=== PATIENT | female | born 1990 | race Caucasian/White ===

== ENCOUNTER 2018-02-02 17:27 | Emergency (ER) | payer OTHER ==
[2018-02-02 18:25] LABS: ALBUMIN 5.5 g/dL (3.2-5.5); ALBUMIN/GLOBULIN RATIO 1.9 (1.0-2.2); ALKALINE PHOSPHATASE 37 IU/L (42-121); ALT ALANINE AMINOTRANSFERASE 13 IU/L (10-60); AST ASPARTATE AMINOTRANSFERASE 21 IU/L (10-42); BILIRUBIN,TOTAL 0.9 mg/dL (0.2-1.0); BUN - BLOOD UREA NITROGEN 12 mg/dL (6-20); CALCIUM 9.5 mg/dL (8.5-10.3); CARBON DIOXIDE - CO2 23 mmol/L (21-32); CHLORIDE 104 mmol/L (101-111); CREATININE 0.7 mg/dL (0.4-1.0); GFR - MDRD 102 (>89); GLUCOSE 114 mg/dL (70-100); LIPASE 15 U/L (22-51); SALICYLATE < 6.0 mg/dL; SODIUM 138 mmol/L (135-145); TOTAL PROTEIN 8.4 g/dL (6.7-8.2)
[2018-02-02 18:31] LABS: ACETAMINOPHEN < 10 ug/mL (10-30)
[2018-02-02 19:26] LABS: MUDS CUTOFF CONCENTRATIONS CUTOFF CONC BELOW:
--- NOTE | 2018-02-02 19:36 | ED Physician Documentation ---
PD HPI MHE - Stated complaint Stated Complaint: MHE - Chief complaint Chief Complaint: MHE - History obtained from History obtained from: Patient, Family - History of Present Illness Primary symptom: Off meds Pain level max: 0 Pain level now: 0 Similar symptoms before: Diagnosis (possible bipolar.) Recently seen: Not recently seen - Additional information Additional information: States increasing anxiety and depression for the past 6 months. has been battling this for several years. Currently not on medications. Saw a psychiatrist 1 month ago and was started on lithium, but stopped this. Says it made her feel "like an empty box". Has a 1 year old and 3 year old at home. Currently is not seeing a psychiatrist. Had been on zoloft in the past as well , states it didn't help. has thoughts of dying, but is not actively suicidal. Patient states that she feels like she would like to go to an inpatient facility as a voluntary patient. Review of Systems Ten Systems: 10 systems reviewed and negative Constitutional: denies: Fever, Chills GI: denies: Nausea, Vomiting, Diarrhea : denies: Dysuria, Frequency, Hesitancy, Now EGA Skin: denies: Rash Musculoskeletal: denies: Neck pain, Back pain Neurologic: denies: Headache PD PAST MEDICAL HISTORY - Past Medical History Past Medical History: Yes Psych: Depression, Anxiety Other Past Medical History: Factor [place] - Past Surgical History Past Surgical History: No - Present Medications Home Medications: Ambulatory Orders Medication Instructions Recorded Confirmed No Known Home Medications [No 02/02/18 02/02/18 Known Home Medications] - Allergies Allergies/Adverse Reactions: Allergies Allergy/AdvReac Type Severity Reaction Status Date / Time amoxicillin Allergy Unknown Verified 02/02/18 17:38 - Social History Does the pt smoke?: No Smoking Status: Never smoker Does the pt drink ETOH?: Yes Does the pt have substance abuse?: No - Immunizations Immunizations are current?: Yes - POLST Patient has POLST: No PD ED PE NORMAL - Vitals Vital signs reviewed: Yes - General General: Alert and oriented X 3, No acute distress - HEENT HEENT: PERRL, Moist mucous membranes - Neck Neck: Supple, no meningeal sign - Cardiac Cardiac: RRR, Strong equal pulses - Respiratory Respiratory: No respiratory distress, Clear bilaterally - Abdomen Abdomen: Soft, Non tender, Non distended - Derm Derm: Warm and dry - Extremities Extremities: No edema, No calf tenderness / cord - Neuro Neuro: Alert and oriented X 3 - Psych Psych: Other (flat affect.) Results - Vitals Vitals: Vital Signs - 24 hr 02/02/18 02/02/18 02/02/18 17:32 19:59 20:45 Temperature 36.8 C Heart Rate 92 81 75 Respiratory 16 16 16 Rate Blood Pressure 125/71 112/73 109/79 O2 Saturation 100 100 100 Oxygen O2 Source Room air - Labs Labs: Laboratory Tests 02/02/18 02/02/18 02/02/18 18:05 18:05 18:05 WBC RBC Hgb Hct MCV MCH MCHC RDW Plt Count MPV Neut # Lymph # [place] # Eos # Baso # Absolute Nucleated RBC Nucleated RBC % Sodium 138 Potassium 2.6 L Chloride 104 Carbon Dioxide 23 Anion Gap 11.0 BUN 12 Creatinine 0.7 Estimated GFR (MDRD) 102 Glucose 114 H Calcium 9.5 Phosphorus 2.6 Magnesium 2.2 Total Bilirubin 0.9 AST 21 ALT 13 Alkaline Phosphatase 37 L Total Protein 8.4 H Albumin 5.5 Globulin 2.9 Albumin/Globulin Ratio 1.9 Lipase 15 L TSH 3.72 Free T4 0.90 Salicylates < 6.0 Urine Opiates Screen Ur Oxycodone Screen Urine Methadone Screen Ur Propoxyphene Screen Acetaminophen < 10 L Ur Barbiturates Screen Ur Tricyclics Screen Ur Phencyclidine Scrn Ur Amphetamine Screen U Methamphetamines Scrn U Benzodiazepines Scrn Urine Cocaine Screen U Cannabinoids Screen Ethyl Alcohol < 5.0 02/02/18 02/02/18 18:05 19:00 WBC 8.0 RBC 4.77 Hgb 14.4 Hct 44.0 MCV 92.2 MCH 30.2 MCHC 32.7 RDW 13.7 Plt Count 250 MPV 9.1 Neut # 5.2 Lymph # 2.4 [place] # 0.4 Eos # 0.0 Baso # 0.0 Absolute Nucleated RBC 0.00 Nucleated RBC % 0.1 Sodium Potassium Chloride Carbon Dioxide Anion Gap BUN Creatinine Estimated GFR (MDRD) Glucose Calcium Phosphorus Magnesium Total Bilirubin AST ALT Alkaline Phosphatase Total Protein Albumin Globulin Albumin/Globulin Ratio Lipase TSH Free T4 Salicylates Urine Opiates Screen NEGATIVE Ur Oxycodone Screen NEGATIVE Urine Methadone Screen NEGATIVE Ur Propoxyphene Screen NEGATIVE Acetaminophen Ur Barbiturates Screen NEGATIVE Ur Tricyclics Screen NEGATIVE Ur Phencyclidine Scrn NEGATIVE Ur Amphetamine Screen NEGATIVE U Methamphetamines Scrn NEGATIVE U Benzodiazepines Scrn NEGATIVE Urine Cocaine Screen NEGATIVE U Cannabinoids Screen POSITIVE H Ethyl Alcohol PD MEDICAL DECISION MAKING - ED course Complexity details: reviewed results, re-evaluated patient, considered differential, d/w patient ED course: Patient is a 27-year-old female who presents to the emergency department with ongoing chronic depression. Found to be hypokalemic and this was replaced. Social work is not available tonight to help with voluntary placement, therefore will hold her in the emergency department overnight and have social work see her in the morning. Will likely need her potassium rechecked. Patient is calm and cooperative here. No evidence of self injury or self-harm. Patient signed out to oncoming emergency department physician. This document was made in part using voice recognition software. While efforts are made to proofread this document, sound alike and grammatical errors may occur. Departure - Departure Clinical Impression: Depression Qualifiers: Depression Type: unspecified Qualified Code(s): F32.9 - Major depressive disorder, single episode, unspecified Condition: Stable
[2018-02-02 19:39] LABS: AMPHETAMINE SCREEN,URINE NEGATIVE (NEGATIVE); BENZODIAZEPINES SCREEN, URINE NEGATIVE (NEGATIVE); COCAINE SCREEN URINE NEGATIVE (NEGATIVE); METHADONE SCREEN, URINE NEGATIVE (NEGATIVE); METHAMPHETAMINES SCREEN, URINE NEGATIVE (NEGATIVE); OPIATE SCREEN, URINE NEGATIVE (NEGATIVE); TRICYCLIC ANTIDEPRESSANT,URINE NEGATIVE (NEGATIVE)
[2018-02-02 19:40] LABS: OXYCODONE SCREEN, URINE NEGATIVE (NEGATIVE); PROPOXYPHENE SCREEN, URINE NEGATIVE (NEGATIVE)
[2018-02-02] MEDS ORDERED: POTASSIUM BICARB 25 MEQ TABLET PO STA (19:52)
[2018-02-02 20:14] LABS: MAGNESIUM 2.2 mg/dL (1.7-2.8); PHOSPHORUS 2.6 mg/dL (2.5-4.6)
[2018-02-02 20:29] LABS: THYROID STIMULATING HORMONE 3.72 uIU/mL (0.34-5.60)
[2018-02-02 20:31] LABS: FREE T4 (FREE THYROXINE) 0.9 ng/dL (0.58-1.64)
[2018-02-02 21:01] LABS: BASOPHILS % (AUTO) 0.4 %; EOSINOPHILS % (AUTO) 0.4 %; HGB - HEMOGLOBIN 14.4 g/dL (12.0-16.0); LYMPHOCYTES # (AUTO) 2.4 10^3/uL (1.5-3.5); LYMPHOCYTES % (AUTO) 29.5 %; MEAN CORPUSCULAR HEMOGLOBIN 30.2 pg (27.0-31.0); MEAN CORPUSCULAR HGB CONC 32.7 g/dL (32.0-36.0); MEAN CORPUSCULAR VOLUME 92.2 fL (81.0-99.0); MEAN PLATELET VOLUME 9.1 fL (7.9-10.8); MONOCYTES # (AUTO) 0.4 10^3/uL (0.0-1.0); MONOCYTES % (AUTO) 5.3 %; NEUTROPHILS # (AUTO) 5.2 10^3/uL (1.5-6.6); NEUTROPHILS % (AUTO) 64.4 %; PLT - PLATELET COUNT 250 10^3/uL (130-450); RED BLOOD COUNT 4.77 10^6/uL (4.20-5.40); RED CELL DISTRIBUTION WIDTH 13.7 % (12.0-15.0)
[2018-02-03] MEDS ORDERED: LORazepam 0.5 MG TABLET PO STA (00:24)
[2018-02-03 06:36] VITALS: BP 115/69
[2018-02-03 12:27] LABS: HCG UR QUAL NEGATIVE
== END 2018-02-03 15:15 ==
LOC: ED 17:27
DX: F32.9 Major depressive disorder, single episode, unspecified (principal); E87.6 Hypokalemia; D68.51 Activated protein C resistance
CPT/HCPCS: 36415; 80053; 80306; 80307; 80320; 80329; 81025; 83690; 83735; 84100; 84132; 84439; 84443; 85025; 99284; A9270

== ENCOUNTER 2018-06-10 11:02 | Outpatient (CLI) | payer OTHER ==
--- NOTE | 2018-06-10 12:13 | XRAY Report ---
Procedure Date: 06/10/2018 Accession Number: [id number] / [id number] Procedure: XR - Ribs w/PA Chest RT CPT Code: FULL RESULT: EXAM: Ribs w/PA Chest RT DATE: 06/10/2018 11:29 AM CLINICAL HISTORY: SUSPECT R RIB FX COMPARISON: None. TECHNIQUE: 1 view of the chest and 2 views of the ribs. FINDINGS: Bones: Minimally displaced right lateral seventh rib fracture. Lungs: No focal opacities. No pneumothorax or pleural effusions. Mediastinum: Heart and mediastinal contours are unremarkable. Other: None. IMPRESSION: Right lateral seventh rib fracture, minimally displaced. RADIA
== END 2018-06-10 11:03 | disposition home or self-care (01) ==
LOC: DI 11:02
PROVIDERS: ATTEND Registered Nurse
DX: S22.31XA Fracture of one rib, right side, initial encounter for closed fracture (principal)

== ENCOUNTER 2018-09-22 19:15 | Emergency (ER) | payer OTHER ==
[2018-09-22 20:01] LABS: BASOPHILS % (AUTO) 0.6 %; EOSINOPHILS % (AUTO) 0.6 %; HGB - HEMOGLOBIN 13.5 g/dL (12.0-16.0); LYMPHOCYTES % (AUTO) 31.6 %; MEAN CORPUSCULAR HEMOGLOBIN 31.3 pg (27.0-31.0); MEAN CORPUSCULAR VOLUME 94.9 fL (81.0-99.0); MEAN PLATELET VOLUME 7.9 fL (7.9-10.8); MONOCYTES # (AUTO) 0.5 10^3/uL (0.0-1.0); MONOCYTES % (AUTO) 7.5 %; NEUTROPHILS # (AUTO) 3.8 10^3/uL (1.5-6.6); NEUTROPHILS % (AUTO) 59.7 %; PLT - PLATELET COUNT 241 10^3/uL (130-450); RED BLOOD COUNT 4.31 10^6/uL (4.20-5.40); RED CELL DISTRIBUTION WIDTH 12.8 % (12.0-15.0); WHITE BLOOD COUNT 6.4 x10^3/uL (4.8-10.8)
[2018-09-22 20:14] LABS: ACETAMINOPHEN < 10 ug/mL (10-30); ALBUMIN 5.1 g/dL (3.2-5.5); ALBUMIN/GLOBULIN RATIO 1.8 (1.0-2.2); ALKALINE PHOSPHATASE 39 IU/L (42-121); ALT ALANINE AMINOTRANSFERASE 17 IU/L (10-60); AST ASPARTATE AMINOTRANSFERASE 21 IU/L (10-42); BILIRUBIN,TOTAL 0.9 mg/dL (0.2-1.0); BUN - BLOOD UREA NITROGEN 13 mg/dL (6-20); CALCIUM 9.9 mg/dL (8.5-10.3); CARBON DIOXIDE - CO2 29 mmol/L (21-32); CHLORIDE 97 mmol/L (101-111); GFR - MDRD 67 (>89); GLUCOSE 100 mg/dL (70-100); LIPASE 23 U/L (22-51); SALICYLATE < 6.0 mg/dL; SODIUM 137 mmol/L (135-145); TOTAL PROTEIN 7.9 g/dL (6.7-8.2)
[2018-09-22] MEDS ORDERED: TETANUS/DIPHTHERIA/PERTUSSIS 0.5 ML SYRINGE IM ONE (20:29)
[2018-09-22] MEDS ORDERED: LIDOCAINE-EPINEPH-TETRACAINE 3 ML SYRINGE TOP STA (20:29)
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
[2018-09-22 21:45] LABS: MUDS CUTOFF CONCENTRATIONS CUTOFF CONC BELOW:
[2018-09-22 21:47] LABS: BILIRUBIN,URINE NEGATIVE (NEGATIVE); GLUCOSE, URINE (UA) NEGATIVE (NEGATIVE); KETONES,URINE (UA) TRACE mg/dL (NEGATIVE); LEUKOCYTE ESTERASE, URINE NEGATIVE (NEGATIVE); NITRITE,URINE NEGATIVE (NEGATIVE); OCCULT BLOOD,URINE NEGATIVE (NEGATIVE); PROTEIN,URINE NEGATIVE (NEGATIVE); UROBILINOGEN,URINE 0.2 (NORMAL) E.U./dL (NORMAL)
[2018-09-22 21:53] LABS: CLARITY,URINE CLEAR (CLEAR)
[2018-09-22 21:59] LABS: HCG UR QUAL NEGATIVE
[2018-09-22 22:00] LABS: AMPHETAMINE SCREEN,URINE NEGATIVE (NEGATIVE); BENZODIAZEPINES SCREEN, URINE POSITIVE (NEGATIVE); COCAINE SCREEN URINE NEGATIVE (NEGATIVE); METHADONE SCREEN, URINE NEGATIVE (NEGATIVE); METHAMPHETAMINES SCREEN, URINE NEGATIVE (NEGATIVE); OPIATE SCREEN, URINE NEGATIVE (NEGATIVE); OXYCODONE SCREEN, URINE NEGATIVE (NEGATIVE); PROPOXYPHENE SCREEN, URINE NEGATIVE (NEGATIVE); TRICYCLIC ANTIDEPRESSANT,URINE NEGATIVE (NEGATIVE)
[2018-09-22] MEDS ORDERED: ACETAMINOPHEN 325 MG TABLET PO STA (22:30)
[2018-09-22] MEDS ORDERED: NICOTINE 7 MG PATCH TOP ONE (22:47)
[2018-09-23] MEDS ORDERED: LORazepam 0.5 MG TABLET PO STA (02:28)
[2018-09-23 02:37] VITALS: BP 94/59
[2018-09-23] MEDS ORDERED: NICOTINE 7 MG PATCH TOP SCH (09:00)
== END 2018-09-23 03:39 ==
LOC: ED 19:15
DX: R45.851 Suicidal ideations (principal); S71.111A Laceration without foreign body, right thigh, initial encounter; X78.8XXA Intentional self-harm by other sharp object, initial encounter; R63.0 Anorexia; Z23 Encounter for immunization
CPT/HCPCS: 12002; 36415; 80053; 80306; 80307; 80320; 80329; 81003; 81025; 83690; 84443; 85025; 90471; 90715; 99284; A9270; 81001; 87086; 99283

== ENCOUNTER 2019-01-28 08:00 | Outpatient (CLI) | payer MEDICAID, OTHER | END 2019-01-28 23:59 | disposition home or self-care (01) | LOC: LAB.F 08:00 | PROVIDERS: ATTEND Physician Assistant Medical | DX: R00.0 Tachycardia, unspecified (principal); I49.9 Cardiac arrhythmia, unspecified; E86.0 Dehydration | CPT/HCPCS: 36415; 80053; 83735; 84443; 85025 ==

== ENCOUNTER 2019-01-28 14:30 | Emergency (ER) | payer MEDICAID ==
[2019-01-28] MEDS ORDERED: LACTATED RINGERS 1,000 ML IV STA (14:36)
[2019-01-28 15:08] LABS: BASOPHILS % (AUTO) 0.8 %; HGB - HEMOGLOBIN 13.2 g/dL (12.0-16.0); LYMPHOCYTES # (AUTO) 1.7 10^3/uL (1.5-3.5); LYMPHOCYTES % (AUTO) 37.5 %; MEAN CORPUSCULAR HEMOGLOBIN 29.6 pg (27.0-31.0); MEAN CORPUSCULAR HGB CONC 32.9 g/dL (32.0-36.0); MEAN PLATELET VOLUME 7.6 fL (7.9-10.8); MONOCYTES # (AUTO) 0.3 10^3/uL (0.0-1.0); MONOCYTES % (AUTO) 6.2 %; NEUTROPHILS # (AUTO) 2.4 10^3/uL (1.5-6.6); NEUTROPHILS % (AUTO) 54.5 %; PLT - PLATELET COUNT 257 10^3/uL (130-450); RED BLOOD COUNT 4.45 10^6/uL (4.20-5.40); WHITE BLOOD COUNT 4.5 x10^3/uL (4.8-10.8)
--- NOTE | 2019-01-28 15:10 | ED Physician Documentation ---
History of Present Illness - Stated complaint Stated Complaint: DEHYDRATED - Chief complaint Chief Complaint: General - History obtained from History obtained from: Patient, Family - History of Present Illness Timing: Today Pain level max: 0 Pain level now: 0 - Additonal information Additional information: 28 year old female with an eating disorder, states unable to keep food down for the past week because she "doesn't want it in my body". Has dropped her weight down to about 100lbs. Was at 122 after 5 months in inpatient treatment. nothing makes it better or worse. Review of Systems Ten Systems: 10 systems reviewed and negative Constitutional: denies: Fever, Chills GI: denies: Vomiting, Diarrhea Skin: denies: Rash Musculoskeletal: denies: Neck pain, Back pain PD PAST MEDICAL HISTORY - Past Medical History Past Medical History: Yes Psych: Depression, Anxiety, Eating disorder - Past Surgical History Past Surgical History: No - Present Medications Home Medications: Ambulatory Orders Medication Instructions Recorded Confirmed Escitalopram Oxalate [Lexapro] 1 tab PO DAILY 09/22/18 01/28/19 LORazepam [Ativan] 0.5 mg PO BID PRN 09/22/18 01/28/19 OLANZapine [Zyprexa] 5 mg PO DAILY PM 09/22/18 01/28/19 Omeprazole 20 mg PO DAILY PM 09/22/18 01/28/19 Trazodone HCl 200 mg PO DAILY PM 09/22/18 01/28/19 Ziprasidone HCl [Geodon] 20 mg PO BID 09/22/18 01/28/19 lamoTRIgine [LaMICtal] 100 mg PO DAILY 09/22/18 01/28/19 Megestrol Acetate [Megace Es] 2.5 ml PO DAILY #30 ml 01/28/19 - Allergies Allergies/Adverse Reactions: Allergies Allergy/AdvReac Type Severity Reaction Status Date / Time amoxicillin Allergy Unknown Verified 01/28/19 14:37 - Social History Does the pt smoke?: No Smoking Status: Never smoker Does the pt drink ETOH?: Yes Does the pt have substance abuse?: No - Immunizations Immunizations are current?: Yes - POLST Patient has POLST: No PD ED PE NORMAL - Vitals Vital signs reviewed: Yes - General General: Alert and oriented X 3, No acute distress - HEENT HEENT: Moist mucous membranes - Neck Neck: Supple, no meningeal sign - Cardiac Cardiac: RRR - Respiratory Respiratory: No respiratory distress, Clear bilaterally - Abdomen Abdomen: Soft, Non tender, Non distended - Derm Derm: Warm and dry - Extremities Extremities: No edema - Neuro Neuro: Alert and oriented X 3 - Psych Psych: Normal mood, Normal affect Results - Vitals Vitals: Vital Signs - 24 hr 01/28/19 01/28/19 01/28/19 14:33 17:27 18:31 Temperature 36.6 C 37.4 C Heart Rate 99 80 65 Respiratory 16 14 16 Rate Blood Pressure 116/74 124/64 103/67 O2 Saturation 97 100 97 Oxygen O2 Source Room air - EKG (time done) 1507 Rate: Rate (enter#) (82) Rhythm: NSR [place]: RAD (borderline) Intervals: Normal CO QRS: Normal Ischemia: Normal ST segments - Labs Labs: Laboratory Tests 01/28/19 01/28/19 01/28/19 14:53 14:53 14:53 WBC 4.5 L RBC 4.45 Hgb 13.2 Hct 40.1 MCV 90.0 MCH 29.6 MCHC 32.9 RDW 14.0 Plt Count 257 MPV 7.6 L Neut # (Auto) 2.4 Lymph # (Auto) 1.7 [place] # (Auto) 0.3 Eos # (Auto) 0.0 Baso # (Auto) 0.0 Absolute Nucleated RBC 0.00 Nucleated RBC % 0.0 Sodium 137 Potassium 3.7 Chloride 98 L Carbon Dioxide 25 Anion Gap 14.0 H BUN 16 Creatinine 1.0 Estimated GFR (MDRD) 67 L Glucose 93 Calcium 9.6 Phosphorus 2.8 Magnesium 2.3 Total Bilirubin 0.8 AST 20 ALT 36 Alkaline Phosphatase 36 L Total Protein 8.1 Albumin 5.3 Globulin 2.8 Albumin/Globulin Ratio 1.9 Lipase 30 TSH 1.03 Free T4 0.99 Urine Color Urine Clarity Urine pH Ur Specific [place] Urine Protein Urine Glucose (UA) Urine Ketones Urine Occult Blood Urine Nitrite Urine Bilirubin Urine Urobilinogen Ur Leukocyte Esterase Ur Microscopic Review Urine Culture Comments Urine HCG, Qual 01/28/19 16:03 WBC RBC Hgb Hct MCV MCH MCHC RDW Plt Count MPV Neut # (Auto) Lymph # (Auto) [place] # (Auto) Eos # (Auto) Baso # (Auto) Absolute Nucleated RBC Nucleated RBC % Sodium Potassium Chloride Carbon Dioxide Anion Gap BUN Creatinine Estimated GFR (MDRD) Glucose Calcium Phosphorus Magnesium Total Bilirubin AST ALT Alkaline Phosphatase Total Protein Albumin Globulin Albumin/Globulin Ratio Lipase TSH Free T4 Urine Color YELLOW Urine Clarity CLEAR Urine pH 6.0 Ur Specific [place] <=1.005 Urine Protein NEGATIVE Urine Glucose (UA) NEGATIVE Urine Ketones 40 H Urine Occult Blood NEGATIVE Urine Nitrite NEGATIVE Urine Bilirubin NEGATIVE Urine Urobilinogen 0.2 (NORMAL) Ur Leukocyte Esterase NEGATIVE Ur Microscopic Review NOT INDICATED Urine Culture Comments NOT INDICATED Urine HCG, Qual NEGATIVE PD MEDICAL DECISION MAKING - ED course Complexity details: reviewed results, re-evaluated patient, considered differential, d/w patient, d/w family, d/w qm consultant ED course: 28-year-old female presents to the emergency department with anorexia. She is given IV fluids and does feel better. No significant electrolyte abnormalities. Social work was consulted and there are no eating disorder beds available that take her insurance. A list of facilities were given to the patient and her mother to call tomorrow. We will trial her on Megace as this has had some success in anorexic patients, patient and mother are comfortable with this plan. Patient and family counseled regarding signs and symptoms for which I believe and urgent re-evaluation would be necessary. Patient with good understanding of and agreement to plan and is comfortable going home at this time This document was made in part using voice recognition software. While efforts are made to proofread this document, sound alike and grammatical errors may occur. Departure - Departure Disposition: 01 Home, Self Care Clinical Impression: Anorexia nervosa Condition: Good Instructions: ED Anorexia Nervosa Follow-Up: Sharifa Arguelles PA-C [Primary Care Provider] - Tomorrow Prescriptions: Megestrol Acetate [Megace Es] 2.5 ml PO DAILY #30 ml Comments: Return if she worsens. Call the eating disorder clinics tomorrow. Your doctor may be able to help you as well. Discharge Date/Time: 01/28/19 19:01
[2019-01-28 15:28] LABS: ALBUMIN 5.3 g/dL (3.2-5.5); ALBUMIN/GLOBULIN RATIO 1.9 (1.0-2.2); BILIRUBIN,TOTAL 0.8 mg/dL (0.2-1.0); CALCIUM 9.6 mg/dL (8.5-10.3); MAGNESIUM 2.3 mg/dL (1.7-2.8); PHOSPHORUS 2.8 mg/dL (2.5-4.6); TOTAL PROTEIN 8.1 g/dL (6.7-8.2)
[2019-01-28 15:43] LABS: THYROID STIMULATING HORMONE 1.03 uIU/mL (0.34-5.60)
[2019-01-28 15:46] LABS: FREE T4 (FREE THYROXINE) 0.99 ng/dL (0.58-1.64)
[2019-01-28] MEDS ORDERED: SODIUM CHLORIDE 0.9% 1,000 ML IV ONE (15:59)
[2019-01-28 16:12] LABS: BILIRUBIN,URINE NEGATIVE (NEGATIVE); GLUCOSE, URINE (UA) NEGATIVE (NEGATIVE); KETONES,URINE (UA) 40 mg/dL (NEGATIVE); LEUKOCYTE ESTERASE, URINE NEGATIVE (NEGATIVE); NITRITE,URINE NEGATIVE (NEGATIVE); OCCULT BLOOD,URINE NEGATIVE (NEGATIVE); PROTEIN,URINE NEGATIVE (NEGATIVE); UROBILINOGEN,URINE 0.2 (NORMAL) E.U./dL (NORMAL)
[2019-01-28 16:21] LABS: CLARITY,URINE CLEAR (CLEAR)
[2019-01-28 16:22] LABS: HCG UR QUAL NEGATIVE
[2019-01-28] MEDS ORDERED: NICOTINE 14 MG PATCH TOP STA (16:29)
[2019-01-28 18:31] VITALS: BP 103/67
== END 2019-01-28 19:01 | disposition home or self-care (01) ==
LOC: ED 14:30
DX: F50.00 Anorexia nervosa, unspecified (principal)
CPT/HCPCS: 36415; 80053; 81003; 81025; 83690; 83735; 84100; 84439; 84443; 85025; 93005; 96360; 96361; 99283; 99284; A9270; J7120; 81001; 87086

== ENCOUNTER 2019-02-11 11:24 | Outpatient (CLI) | payer MEDICAID ==
[2019-02-11 18:24] LABS: BASOPHILS % (AUTO) 0.7 %; EOSINOPHILS # (AUTO) 0.1 10^3/uL (0.0-0.7); EOSINOPHILS % (AUTO) 3.4 %; HGB - HEMOGLOBIN 12.3 g/dL (12.0-16.0); LYMPHOCYTES # (AUTO) 1.7 10^3/uL (1.5-3.5); LYMPHOCYTES % (AUTO) 45.9 %; MEAN CORPUSCULAR HEMOGLOBIN 29.5 pg (27.0-31.0); MEAN CORPUSCULAR HGB CONC 32.5 g/dL (32.0-36.0); MEAN CORPUSCULAR VOLUME 90.7 fL (81.0-99.0); MEAN PLATELET VOLUME 8.3 fL (7.9-10.8); MONOCYTES # (AUTO) 0.3 10^3/uL (0.0-1.0); MONOCYTES % (AUTO) 7.3 %; NEUTROPHILS # (AUTO) 1.6 10^3/uL (1.5-6.6); NEUTROPHILS % (AUTO) 42.7 %; PLT - PLATELET COUNT 217 10^3/uL (130-450); RED BLOOD COUNT 4.18 10^6/uL (4.20-5.40); RED CELL DISTRIBUTION WIDTH 14.6 % (12.0-15.0); WHITE BLOOD COUNT 3.7 x10^3/uL (4.8-10.8)
[2019-02-11 18:27] LABS: GLUCOSE, URINE (UA) NEGATIVE (NEGATIVE); KETONES,URINE (UA) NEGATIVE (NEGATIVE); LEUKOCYTE ESTERASE, URINE NEGATIVE (NEGATIVE); NITRITE,URINE NEGATIVE (NEGATIVE); OCCULT BLOOD,URINE NEGATIVE (NEGATIVE); PH,URINE 8.5 PH (5.0-7.5); PROTEIN,URINE TRACE mg/dL (NEGATIVE); UROBILINOGEN,URINE 0.2 (NORMAL) E.U./dL (NORMAL)
[2019-02-11 18:37] LABS: CLARITY,URINE CLEAR (CLEAR)
[2019-02-11 18:38] LABS: BILIRUBIN,URINE NEGATIVE (NEGATIVE); ICTOTEST,URINE NEGATIVE
[2019-02-11 18:45] LABS: ALBUMIN 4.5 g/dL (3.2-5.5); BILIRUBIN,TOTAL 0.7 mg/dL (0.2-1.0); CALCIUM 9.5 mg/dL (8.5-10.3); CREATININE 1.1 mg/dL (0.4-1.0); TOTAL PROTEIN 6.8 g/dL (6.7-8.2)
== END 2019-02-11 11:25 | disposition home or self-care (01) ==
LOC: LAB.F 11:24
PROVIDERS: ATTEND Physician Assistant Medical
DX: I49.9 Cardiac arrhythmia, unspecified (principal); E86.0 Dehydration; F50.01 Anorexia nervosa, restricting type
CPT/HCPCS: 36415; 80053; 81001; 81003; 85025; 87086

== ENCOUNTER 2019-02-20 18:41 | Emergency (ER) | payer MEDICAID ==
[2019-02-20] MEDS ORDERED: SODIUM CHLORIDE 0.9% 1,000 ML IV ONE ×2 (18:57)
[2019-02-20 19:47] LABS: BASOPHILS # (AUTO) 0.1 10^3/uL (0.0-0.1); BASOPHILS % (AUTO) 0.6 %; EOSINOPHILS # (AUTO) 0.1 10^3/uL (0.0-0.7); EOSINOPHILS % (AUTO) 0.7 %; HGB - HEMOGLOBIN 13.4 g/dL (12.0-16.0); LYMPHOCYTES # (AUTO) 2.7 10^3/uL (1.5-3.5); LYMPHOCYTES % (AUTO) 32.7 %; MEAN CORPUSCULAR HEMOGLOBIN 29.7 pg (27.0-31.0); MEAN CORPUSCULAR HGB CONC 33.4 g/dL (32.0-36.0); MEAN CORPUSCULAR VOLUME 88.9 fL (81.0-99.0); MEAN PLATELET VOLUME 7.4 fL (7.9-10.8); MONOCYTES # (AUTO) 0.6 10^3/uL (0.0-1.0); MONOCYTES % (AUTO) 7.5 %; NEUTROPHILS # (AUTO) 4.7 10^3/uL (1.5-6.6); NEUTROPHILS % (AUTO) 58.5 %; PLT - PLATELET COUNT 258 10^3/uL (130-450); RED CELL DISTRIBUTION WIDTH 14.3 % (12.0-15.0); WHITE BLOOD COUNT 8.1 x10^3/uL (4.8-10.8)
--- NOTE | 2019-02-20 19:50 | ED Physician Documentation ---
History of Present Illness - Stated complaint Stated Complaint: BODY PX - Chief complaint Chief Complaint: General - History obtained from History obtained from: Patient, Family - History of Present Illness Timing: Chronic Pain level max: 3 Pain level now: 2 - Additonal information Additional information: 28-year-old female who has a history of anorexia. Has not been able to get into a treatment program. Has not been eating and drinking well. She states she is beginning to have muscle cramps and muscle spasms. She had lab work done with her doctor last week and was told it was "not good". She does have a counselor that is she is seeing. She does not have a dietitian or cook specialty. Nothing makes this better or worse. Review of Systems Ten Systems: 10 systems reviewed and negative Constitutional: denies: Fever, Chills Nose: denies: Rhinorrhea / runny nose, Congestion Respiratory: denies: Cough GI: denies: Nausea, Vomiting, Diarrhea Skin: denies: Rash Musculoskeletal: denies: Neck pain, Back pain Neurologic: reports: Generalized weakness. 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 - Past Surgical History Past Surgical History: No - Present Medications Home Medications: Ambulatory Orders Medication Instructions Recorded Confirmed Escitalopram Oxalate [Lexapro] 20 mg PO DAILY 09/22/18 02/20/19 LORazepam [Ativan] 0.5 mg PO PRN PRN 09/22/18 02/20/19 Omeprazole 20 mg PO DAILY PM 09/22/18 02/20/19 Trazodone HCl 150 mg PO DAILY PM 09/22/18 02/20/19 lamoTRIgine [LaMICtal] 200 mg PO DAILY 09/22/18 02/20/19 Albuterol Sulf [Ventolin Hfa 1 puffs ORAL DAILY 02/20/19 02/20/19 Inhaler] Beclomethasone 40 Mcg [Qvar 40] 2 puffs PO BID 02/20/19 02/20/19 Fluticasone Propionate 1 puffs PHILIP DAILY 02/20/19 02/20/19 Hydroxyzine Pamoate [Vistaril] 50 mg PO Q6HR PRN 02/20/19 02/20/19 QUEtiapine [SEROquel] 75 mg PO DAILY PM 02/20/19 02/20/19 Vitamin B Complex 1 applic PO DAILY 02/20/19 02/20/19 - Allergies Allergies/Adverse Reactions: Allergies Allergy/AdvReac Type Severity Reaction Status Date / Time amoxicillin Allergy Unknown Verified 02/20/19 18:53 - Social History Does the pt smoke?: No Smoking Status: Never smoker Does the pt drink ETOH?: Yes Does the pt have substance abuse?: No - Immunizations Immunizations are current?: Yes - POLST Patient has POLST: No PD ED PE NORMAL - Vitals Vital signs reviewed: Yes - General General: Alert and oriented X 3, No acute distress, Well developed/nourished - HEENT HEENT: PERRL, Moist mucous membranes - Neck Neck: Supple, no meningeal sign - Cardiac Cardiac: RRR, Strong equal pulses - Respiratory Respiratory: No respiratory distress, Clear bilaterally - Abdomen Abdomen: Soft, Non tender, Non distended - Derm Derm: Warm and dry - Extremities Extremities: No edema, No calf tenderness / cord - Neuro Neuro: Alert and oriented X 3 - Psych Psych: Normal mood, Normal affect Results - Vitals Vitals: Vital Signs - 24 hr 02/20/19 02/20/19 02/20/19 18:49 19:43 20:06 Temperature 36.1 C L Heart Rate 107 H 115 H Respiratory 16 21 19 Rate Blood Pressure 109/72 132/64 H 111/60 O2 Saturation 99 99 02/20/19 02/20/19 20:17 20:48 Temperature Heart Rate 100 81 Respiratory 18 20 Rate Blood Pressure 110/58 L O2 Saturation 100 96 Oxygen O2 Source Room air - EKG (time done) 2037 Rate: Rate (enter#) (83) Rhythm: NSR [place]: Normal Intervals: Normal NH, Prolonged QT (481) QRS: Normal Ischemia: Non specific changes - Labs Labs: Laboratory Tests 02/20/19 02/20/19 02/20/19 19:32 19:32 19:32 WBC 8.1 RBC 4.50 Hgb 13.4 Hct 40.1 MCV 88.9 MCH 29.7 MCHC 33.4 RDW 14.3 Plt Count 258 MPV 7.4 L Neut # (Auto) 4.7 Lymph # (Auto) 2.7 Collin # (Auto) 0.6 Eos # (Auto) 0.1 Baso # (Auto) 0.1 Absolute Nucleated RBC 0.00 Nucleated RBC % 0.0 Sodium 141 Potassium 3.6 Chloride 100 L Carbon Dioxide 27 Anion Gap 14.0 H BUN 15 Creatinine 1.0 Estimated GFR (MDRD) 67 L Glucose 90 Calcium 9.8 Phosphorus 2.3 L Magnesium 1.9 Total Bilirubin 0.8 AST 37 ALT 18 Alkaline Phosphatase 38 L Total Protein 7.7 Albumin 5.0 Globulin 2.7 Albumin/Globulin Ratio 1.9 Lipase 72 H HCG, Quant < 0.60 PD MEDICAL DECISION MAKING - ED course Complexity details: reviewed results, re-evaluated patient, considered differential, d/w patient, d/w family, d/w solutions market consultant ED course: 28-year-old female with a history of anorexia nervosa, symptoms appear to be worsening over the past several months. She has declined in her weight from 51 kg in September to 45 kg tonight. She has QT prolongation on her EKG. She is having full body spasm and convulsion episodes. Unclear if they are partial seizures or possibly related to vitamin deficiencies? I attempted to call the [facility], they have no beds. [facility] has no beds. [facility] does not have neurology. I contacted Health system, Dr. Patti Davis graciously accepts in transfer. Patient was given 2 g of magnesium here as well as a banana fluids. Also given 2-1/2 mg of Valium IV which did help her spasms. COBRA forms filled out and patient transferred. This document was made in part using voice recognition software. While efforts are made to proofread this document, sound alike and grammatical errors may occur. Departure - Departure Disposition: 02 Transfer Acute Care Hosp Clinical Impression: Anorexia nervosa, Seizure-like activity, QT prolongation Condition: Stable
[2019-02-20 19:58] LABS: ALBUMIN/GLOBULIN RATIO 1.9 (1.0-2.2); BILIRUBIN,TOTAL 0.8 mg/dL (0.2-1.0); CALCIUM 9.8 mg/dL (8.5-10.3); MAGNESIUM 1.9 mg/dL (1.7-2.8); PHOSPHORUS 2.3 mg/dL (2.5-4.6); TOTAL PROTEIN 7.7 g/dL (6.7-8.2)
[2019-02-20] MEDS ORDERED: MAGNESIUM SULFATE 2 GRAM 2 GM/50 ML BAG IV ONE (20:05)
[2019-02-20] MEDS ORDERED: diazePAM INJ 5 MG/ML SYRINGE IVP STA (20:27)
[2019-02-20] MEDS ORDERED: [UNRECOGNIZED DRUG - OTHER] IV STA ×2 (21:14→21:20)
[2019-02-20] MEDS ORDERED: THIAMINE IV STA ×2 (21:14→21:20)
[2019-02-20] MEDS ORDERED: MULTIVITAMIN IV STA ×2 (21:14→21:20)
[2019-02-20] MEDS ORDERED: FOLIC ACID IV STA ×2 (21:14→21:20)
[2019-02-20 21:32] LABS: BILIRUBIN,URINE NEGATIVE (NEGATIVE); GLUCOSE, URINE (UA) NEGATIVE (NEGATIVE); KETONES,URINE (UA) 15 mg/dL (NEGATIVE); LEUKOCYTE ESTERASE, URINE NEGATIVE (NEGATIVE); NITRITE,URINE NEGATIVE (NEGATIVE); OCCULT BLOOD,URINE NEGATIVE (NEGATIVE); PH,URINE 6.5 PH (5.0-7.5); PROTEIN,URINE NEGATIVE (NEGATIVE); UROBILINOGEN,URINE 0.2 (NORMAL) E.U./dL (NORMAL)
[2019-02-20] MEDS ORDERED: THIAMINE 100 MG/1 ML 2 ML MDV ONE (21:33)
[2019-02-20 21:35] LABS: CLARITY,URINE CLEAR (CLEAR)
[2019-02-20 22:38] VITALS: BP 97/68
== END 2019-02-20 23:35 | disposition short-term general hospital (02) ==
LOC: ED 18:41
DX: F50.00 Anorexia nervosa, unspecified (principal); R56.9 Unspecified convulsions; I45.81 Long QT syndrome
CPT/HCPCS: 36415; 80053; 81003; 83690; 83735; 84100; 84702; 85025; 93005; 96361; 96365; 96375; 99284; J3411; 81001; 87086; 99285

== ENCOUNTER 2020-03-17 10:15 | Outpatient (CLI) | payer MEDICAID ==
--- NOTE | 2020-03-17 17:53 | XRAY Report ---
Reason: RIGHT SIDED RIB PAIN Procedure Date: 03/17/2020 Accession Number: [id number] / [id number] Procedure: WCP - Ribs w/PA Chest RT CPT Code: Final Report FULL RESULT: EXAM: RIGHT RIB RADIOGRAPHY EXAM DATE: 03/17/2020 10:15 AM. CLINICAL HISTORY: RIGHT SIDED RIB PAIN. Cough. No known injury. COMPARISON: RIBS W/PA CHEST RT 06/10/2018 11:14 AM. TECHNIQUE: 1 view of the chest and 2 views of the ribs. FINDINGS: Bones: Normal. No convincing fracture or bone lesion. Marker was placed at the right ninth costochondral junction Lungs: No focal opacities. No peribronchial cuffing or interstitial abnormality. No pneumothorax. No pleural effusions. Mediastinum: Heart and mediastinal contours are unremarkable. Other: None. IMPRESSION: Normal chest and rib radiography. [facility]
== END 2020-03-17 23:59 | disposition home or self-care (01) ==
LOC: DI.WCP 10:15
PROVIDERS: ATTEND Family Medicine
DX: R07.81 Pleurodynia (principal)

== ENCOUNTER 2021-02-28 15:39 | Emergency (ER) | payer MEDICAID ==
--- OUTSIDE RECORDS SUMMARY | 2021-02-28 16:02 | EXTERNAL MEDICAL SUMMARY RPT | Continuity of Care Document ---
:1990 Demographics Phone Unavailable Preferred Language Unknown Marital Status Unknown Roman Catholic Affiliation Unknown Race Unknown Ethnic Group Unknown Author Organization [facility] Address [address] [place] [address] Phone Social History date description facility [id number]
[2021-02-28 16:31] VITALS: BP 108/86
[2021-02-28] MEDS ORDERED: KETOROLAC 60 MG/2 ML VIAL IM STA (16:40)
[2021-02-28] MEDS ORDERED: DEXAMETHASONE 10 MG/ML VIAL PO STA (16:41)
[2021-02-28] MEDS ORDERED: CHERRY SYRUP 10 ML UDC PO ONE (16:41)
--- NOTE | 2021-02-28 17:02 | ED Physician Documentation ---
History of Present Illness - Stated complaint Stated Complaint: BACK PX - Chief complaint Chief Complaint: Back Pain - Additonal information Additional information: 30-year-old female presents the emergency department for evaluation of worsening low back pain with radiation to the right leg. She reports a longstanding history of laxity in her hips which has resulted in a chronic back pain. She has been told in the past she has sciatica. Over the last few days she has had increasing pain with radiation down to her heels and toes on the posterior thigh as well as a new pain in the right anterior thigh. She reports that yesterday evening she was texting with her friends and felt a sensation in her abdomen that she was not sure what it was. She thought that she may pass gas but denied that she had a sensation of cramping. She then passed loose stool. She was concerned that this was loss of bowel function. She denies any saddle anesthesia and was able to have a normal bowel movement this morning. Patient does have a longstanding history of anxiety as well as anorexia. She does not appear excessively thin but declines to have her weight taken as this is a trigger for her. 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 No fevers. No saddle anesthesia. No history of falls or trauma. No history of epidural abscess or injection drug use. No history of cancer. No spinal instrumentation. 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 - Past Surgical History Past Surgical History: No - Present Medications Home Medications: Ambulatory Orders Medication Instructions Recorded Confirmed QUEtiapine [SEROquel] 400 mg PO DAILY PM 02/20/19 02/28/21 Acetaminophen [Tylenol] 650 mg PO Q6H PRN #30 tab 02/28/21 - Allergies Allergies/Adverse Reactions: Allergies Allergy/AdvReac Type Severity Reaction Status Date / Time amoxicillin Allergy Unknown Verified 02/20/19 18:53 - Social History Does the pt smoke?: No Smoking Status: Never smoker Does the pt drink ETOH?: Yes Does the pt have substance abuse?: Yes Substance Use and Type: Marijuana - Immunizations Immunizations are current?: Yes - POLST Patient has POLST: No PD ED PE EXPANDED - General General: Alert, No acute distress, Well developed/nourished (Does not appear excessively thin. Normal body habitus) - Cardiac Cardiac: Regular Rate, Radial strong equal, Pedal strong equal, Cap refill < 2 sec - Respiratory Respiratory: Clear to ausultation ada. No: Distress, Labored - Abdomen Abdomen: Normal Bowel sounds. No: Tender to palpation - Rectal Rectal: Normal Tone (No saddle anesthesia. Normal rectal tone and wink.) - Back Back: Soft tissue tenderness, Straight leg raise + R (Tenderness at the right SI point. Positive straight leg on right. Motor strength 5 of 5 bilateral lower extremities. Antalgic but unassisted gait on right side). No: Vertebral tenderness - Extremities Extremities: Normal, Other (Normal movement of both hips without click. No shortening or malrotation of the legs.). No: Deformity, Tenderness - Neuro Neuro: Alert and Oriented X 3, CNII-XII intact Results - Vitals Vitals: Vital Signs - 24 hr 02/28/21 02/28/21 15:49 16:30 Temperature 36.3 C L Heart Rate 70 77 Respiratory 18 16 Rate Blood Pressure 117/74 108/86 H O2 Saturation 100 99 Oxygen O2 Source Room air PD MEDICAL DECISION MAKING - ED course Complexity details: reviewed results ED course: This is a well-appearing 30-year-old female that presents emergency department with acute on chronic low back pain. She reports a longstanding history of laxity in the hips that contributes to her symptoms. She had reported that she passed stool unexpectedly but the story is not consistent with saddle anesthesia. She did have a sensation in her abdomen that she may pass gas and when she attempted to do so she passed loose stool. On exam she has a antalgic gait on the right side with a limp. Positive straight leg exam. However no red flags. I offered Toradol which she declined but she did accept Decadron. I have recommended [id number] ibuprofen and Tylenol. Patient is scheduled to follow-up with her primary care provider in 4 days for reevaluation of her back pain. She may benefit from referral to physical therapy and/or longer-term imaging such as an MRI to be decided upon by the primary care provider. Departure - Departure Disposition: Home, Self Care Clinical Impression: Low back pain Qualifiers: Chronicity: acute Back pain laterality: right Sciatica presence: with sciatica Sciatica laterality: sciatica of right side Qualified Code(s): M54.41 - Lumbago with sciatica, right side Condition: Stable Record reviewed to determine appropriate education?: Yes Instructions: ED Sciatica Prescriptions: Acetaminophen [Tylenol] 650 mg PO Q6H PRN #30 tab PRN Reason: Pain Comments: Ping you were seen in the emergency department today for right low sided back pain. Your exam is consistent with sciatica. It is also possible that the pain that you express on the right side your thigh could be lateral femoral cutaneous nerve syndrome. You did decline an injection of Toradol here in the emergency department however you were given 10 mg of Decadron here in the emergency department. This is a long-acting steroid that I think is going to help markedly over the next 48 to 72 hours for your back pain. I do recommend that you take Tylenol with food 3-4 times a day. On evening or Saturday morning you may also take ibuprofen 600 mg with food 2-3 times a day. Please do not miss the follow-up appointment with your primary care provider on Saturday to discuss this back pain. You may benefit in the long-term from physical therapy. Return to the emergency department if you develop fevers, lose control of your bowel or bladder function without being aware of it, have sudden weakness in your legs or feel that your pain is too severe to be tolerated at home.
== END 2021-02-28 17:18 | disposition home or self-care (01) ==
LOC: ED 15:39
DX: M54.41 Lumbago with sciatica, right side (principal); F41.9 Anxiety disorder, unspecified
CPT/HCPCS: 99283; 99284; A9270; 80053; 83690; 85025

== ENCOUNTER 2021-11-21 08:00 | Outpatient (CLI) | payer MEDICAID ==
[2021-11-21 21:12] LABS: BACTERIAL VAGINOSIS DNA NEGATIVE (NEGATIVE); CANDIDA GLABRATA DNA NEGATIVE (NEGATIVE); CANDIDA GROUP DNA POSITIVE (NEGATIVE); CANDIDA KRUSEI DNA NEGATIVE (NEGATIVE); TRICHOMONAS VAGINALIS DNA NEGATIVE (NEGATIVE)
== END 2021-11-21 23:59 ==
LOC: LAB.S 08:00
PROVIDERS: ATTEND Emergency Medicine
DX: N76.0 Acute vaginitis (principal); R09.89 Other specified symptoms and signs involving the circulatory and respiratory systems; J06.9 Acute upper respiratory infection, unspecified; Z20.822 Contact with and (suspected) exposure to COVID-19
CPT/HCPCS: 87661; 87801

== ENCOUNTER 2021-11-27 08:00 | Outpatient (CLI) | payer MEDICAID | END 2021-11-27 23:59 | LOC: LAB.S 08:00 | PROVIDERS: ATTEND Emergency Medicine | DX: R09.89 Other specified symptoms and signs involving the circulatory and respiratory systems (principal); J06.9 Acute upper respiratory infection, unspecified; Z20.822 Contact with and (suspected) exposure to COVID-19 ==

== ENCOUNTER 2022-01-06 08:00 | Outpatient (CLI) | payer MEDICAID ==
[2022-01-06 17:58] LABS: BILIRUBIN,URINE NEGATIVE (NEGATIVE); CLARITY,URINE CLEAR (CLEAR); GLUCOSE, URINE (UA) NEGATIVE (NEGATIVE); KETONES,URINE (UA) NEGATIVE (NEGATIVE); LEUKOCYTE ESTERASE, URINE MODERATE (NEGATIVE); NITRITE,URINE POSITIVE (NEGATIVE); OCCULT BLOOD,URINE MODERATE (NEGATIVE); PROTEIN,URINE NEGATIVE (NEGATIVE); UROBILINOGEN,URINE 0.2 (NORMAL) E.U./dL (NORMAL)
[2022-01-06 18:18] LABS: BACTERIA,URINE None Seen /HPF (None Seen); RBC,URINE 0-5 /HPF (0-5); SQUAMOUS EPITHELIAL CELL,UR RARE Squamous (<= Few)
== END 2022-01-06 23:59 ==
LOC: LAB.S 08:00
PROVIDERS: ATTEND Emergency Medicine
DX: N30.00 Acute cystitis without hematuria (principal)
CPT/HCPCS: 81001; 87086

== ENCOUNTER 2022-01-30 20:33 | Emergency (ER) | payer MEDICAID ==
[2022-01-30] MEDS ORDERED: SODIUM CHLORIDE 0.9% 1,000 ML IV STA (21:07)
[2022-01-30 21:17] LABS: BASOPHILS % (AUTO) 0.2 %; HCT - HEMATOCRIT 37.8 % (37.0-47.0); HGB - HEMOGLOBIN 12.6 g/dL (12.0-16.0); LYMPHOCYTES # (AUTO) 2.8 10^3/uL (1.5-3.5); LYMPHOCYTES % (AUTO) 23.6 %; MEAN CORPUSCULAR HEMOGLOBIN 31.3 pg (27.0-31.0); MEAN CORPUSCULAR HGB CONC 33.3 g/dL (32.0-36.0); MEAN PLATELET VOLUME 9.7 fL (7.9-10.8); MONOCYTES # (AUTO) 1.1 10^3/uL (0.0-1.0); NEUTROPHILS # (AUTO) 7.9 10^3/uL (1.5-6.6); NEUTROPHILS % (AUTO) 66.9 %; PLT - PLATELET COUNT 245 10^3/uL (130-450); RED BLOOD COUNT 4.02 10^6/uL (4.20-5.40); RED CELL DISTRIBUTION WIDTH 12.7 % (12.0-15.0); WHITE BLOOD COUNT 11.8 x10^3/uL (4.8-10.8)
[2022-01-30 21:41] LABS: ALBUMIN 4.6 g/dL (3.2-5.5); ALBUMIN/GLOBULIN RATIO 1.6 (1.0-2.2); BILIRUBIN,TOTAL 0.4 mg/dL (0.2-1.0); CALCIUM 9.5 mg/dL (8.5-10.3); CREATININE 0.9 mg/dL (0.4-1.0); MAGNESIUM 2.1 mg/dL (1.7-2.8); POTASSIUM 3.4 mmol/L (3.5-5.0); TOTAL PROTEIN 7.5 g/dL (6.7-8.2)
--- NOTE | 2022-01-30 22:03 | ED Physician Documentation ---
History of Present Illness - Stated complaint Stated Complaint: DIZZY/CP/NAUSEA - Chief complaint Chief Complaint: Cardiac - History obtained from History obtained from: Patient - Additonal information Additional information: Patient presenting for evaluation of intermittent chest pain for the last 2 to 3 weeks. She states that when it comes it is located to the left side of her chest and feels sharp and throbbing. Nothing makes it better or worse. Is usually last for a few hours. This evening she was in the shower at 5 PM when the pain started and it has been constant. There is no radiation to the pain. She also reported feeling dizzy and lightheaded and states that intermittently her vision feels like she is looking in a fish bowl too long.She denies fever, cough, congestion, difficulty breathing, abdominal pain, vomiting. She reports nausea. No dysuria, vaginal bleeding, discharge.Denies family history of early coronary artery disease. Review of Systems Ten Systems: 10 systems reviewed and negative Constitutional: denies: Fever Eyes: denies: Loss of vision Ears: denies: Tinnitus/ringing Nose: denies: Congestion Cardiac: reports: Chest pain / pressure. denies: Palpitations Respiratory: denies: Dyspnea, Cough GI: reports: Nausea. denies: Abdominal Pain : denies: Dysuria, Vaginal bleeding Skin: denies: Rash Neurologic: reports: Generalized weakness. 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 HEENT: None Psych: Depression, Anxiety, Eating disorder Musculoskeletal: None Derm: None - Past Surgical History Past Surgical History: No - Present Medications Home Medications: Ambulatory Orders Medication Instructions Recorded Confirmed QUEtiapine [SEROquel] 400 mg PO DAILY PM 02/20/19 02/28/21 Acetaminophen [Tylenol] 650 mg PO Q6H PRN #30 tab 02/28/21 Mirtazapine 01/30/22 01/30/22 - Allergies Allergies/Adverse Reactions: Allergies Allergy/AdvReac Type Severity Reaction Status Date / Time amoxicillin Allergy Unknown Verified 01/30/22 20:42 - Social History Does the pt smoke?: No Smoking Status: Never smoker Does the pt drink ETOH?: Yes Does the pt have substance abuse?: Yes - Immunizations Immunizations are current?: Yes - POLST Patient has POLST: No PD ED PE NORMAL - General General: Alert and oriented X 3, No acute distress, Well developed/nourished - HEENT HEENT: Atraumatic, PERRL, EOMI, Ears normal, Moist mucous membranes, Pharynx benign, Dentition benign - Neck Neck: Supple, no meningeal sign - Cardiac Cardiac: RRR, No murmur, No gallop, Strong equal pulses - Respiratory Respiratory: No respiratory distress, Clear bilaterally - Abdomen Abdomen: Normal bowel sounds, Soft, Non tender, Non distended - Back Back: No CVA TTP - Derm Derm: Normal color, Warm and dry - Extremities Extremities: No deformity, No edema - Neuro Neuro: Alert and oriented X 3, 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, No motor deficit, No sensory deficit, Normal speech, Other (Normal gait) - Psych Psych: Normal mood, Normal affect Results - Vitals Vitals: Vital Signs - 24 hr 01/30/22 01/30/22 01/30/22 20:37 22:12 23:12 Temperature 37.1 C Heart Rate 101 H 76 Heart Rate [ 73 Sitting] Heart Rate [ 67 Standing] Heart Rate [ 66 Supine] Respiratory 16 15 Rate Blood Pressure 137/83 H 115/70 Blood Pressure 114/82 H [Sitting] Blood Pressure 128/74 [Standing] Blood Pressure 113/74 [Supine] O2 Saturation 98 97 Oxygen O2 Source Room air - EKG (time done) 2044 Rate: Rate (enter#) (72) Rhythm: NSR - Labs Labs: Laboratory Tests 01/30/22 01/30/22 01/30/22 21:10 21:10 21:10 WBC 11.8 H RBC 4.02 L Hgb 12.6 Hct 37.8 MCV 94.0 MCH 31.3 H MCHC 33.3 RDW 12.7 Plt Count 245 MPV 9.7 Neut # (Auto) 7.9 H Lymph # (Auto) 2.8 Nicholas # (Auto) 1.1 H Eos # (Auto) 0.0 Baso # (Auto) 0.0 Absolute Nucleated RBC 0.00 Nucleated RBC % 0.0 Sodium 135 Potassium 3.4 L Chloride 99 L Carbon Dioxide 27 Anion Gap 9.0 BUN 17 Creatinine 0.9 Estimated GFR (MDRD) 74 L Glucose 110 H Calcium 9.5 Magnesium 2.1 Total Bilirubin 0.4 AST 17 ALT 13 Alkaline Phosphatase 30 L Troponin I High Sens < 2.3 L Total Protein 7.5 Albumin 4.6 Globulin 2.9 Albumin/Globulin Ratio 1.6 Urine Color Urine Clarity Urine pH Ur Specific [place] Urine Protein Urine Glucose (UA) Urine Ketones Urine Occult Blood Urine Nitrite Urine Bilirubin Urine Urobilinogen Ur Leukocyte Esterase Ur Microscopic Review Urine Culture Comments Urine HCG, Qual 01/30/22 22:05 WBC RBC Hgb Hct MCV MCH MCHC RDW Plt Count MPV Neut # (Auto) Lymph # (Auto) Nicholas # (Auto) Eos # (Auto) Baso # (Auto) Absolute Nucleated RBC Nucleated RBC % Sodium Potassium Chloride Carbon Dioxide Anion Gap BUN Creatinine Estimated GFR (MDRD) Glucose Calcium Magnesium Total Bilirubin AST ALT Alkaline Phosphatase Troponin I High Sens Total Protein Albumin Globulin Albumin/Globulin Ratio Urine Color YELLOW Urine Clarity CLEAR Urine pH 6.5 Ur Specific [place] 1.010 Urine Protein NEGATIVE Urine Glucose (UA) NEGATIVE Urine Ketones NEGATIVE Urine Occult Blood NEGATIVE Urine Nitrite NEGATIVE Urine Bilirubin NEGATIVE Urine Urobilinogen 0.2 (NORMAL) Ur Leukocyte Esterase NEGATIVE Ur Microscopic Review NOT INDICATED Urine Culture Comments NOT INDICATED Urine HCG, Qual NEGATIVE PD MEDICAL DECISION MAKING - ED course ED course: Patient presenting for evaluation of chest pain. She is low risk per the heart score without any real risk factors for coronary artery disease. Her EKG is reassuring and her troponin is negative. Do not think she needs a repeat troponin given the duration of her symptoms.Doubt pulmonary embolism. Although she was tachycardic on initial vitals, this quickly improved without any intervention. She is also not hypoxic. She also does not appear labored with her breathing and has no or lower extremity swelling to suggest a DVT. Patient also has complaints of feeling like she is looking into a fish bowl. Visual acuity appears intact. Patient does report that she is currently being evaluated for an autoimmune condition such as MS. I do not think she needs emergent imaging or testing at this time. Patient is encouraged to continue following up with her primary care doctor and specialist. She is aware of return precautions. Departure - Departure Disposition: 01 Home, Self Care Clinical Impression: Nausea, Hypokalemia Chest pain Qualifiers: Chest pain type: unspecified Qualified Code(s): R07.9 - Chest pain, unspecified Instructions: ED Potassium Deficiency, ED Chest Pain O Comments: At this time the exact cause of your symptoms is unknown. However it does not appear that you are having a heart attack. I do not think you are having a stroke or a blood clot. Your potassium was slightly low when you did get a potassium pill. Please continue to hydrate and have close follow-up with your doctor. Return to the emergency department if your pain worsens or you develop any new symptoms that concern you. Discharge Date/Time: 01/30/22 23:15
--- NOTE | 2022-01-30 22:10 | XRAY Report ---
PROCEDURE: Chest 1 View X-Ray INDICATIONS: Chest pain TECHNIQUE: One view of the chest was acquired. COMPARISON: None FINDINGS: Surgical changes and devices: None. Lungs and pleura: No pleural effusions or pneumothorax. Lungs are clear. Mediastinum: Mediastinal contours appear normal. Heart size is normal. Bones and chest wall: No suspicious bony lesions. Overlying soft tissues appear unremarkable. IMPRESSION: No acute cardiopulmonary disease process. Reviewed by: Macie Martinez MD, PhD on 01/30/2022 10:09 PM PDT Approved by: Macie Martinez MD, PhD on 01/30/2022 10:09 PM PDT Station ID: [id number]
[2022-01-30 22:17] LABS: BILIRUBIN,URINE NEGATIVE (NEGATIVE); GLUCOSE, URINE (UA) NEGATIVE (NEGATIVE); KETONES,URINE (UA) NEGATIVE (NEGATIVE); LEUKOCYTE ESTERASE, URINE NEGATIVE (NEGATIVE); NITRITE,URINE NEGATIVE (NEGATIVE); OCCULT BLOOD,URINE NEGATIVE (NEGATIVE); PH,URINE 6.5 PH (5.0-7.5); PROTEIN,URINE NEGATIVE (NEGATIVE); UROBILINOGEN,URINE 0.2 (NORMAL) E.U./dL (NORMAL)
[2022-01-30 22:19] LABS: CLARITY,URINE CLEAR (CLEAR)
[2022-01-30 22:20] LABS: HCG UR QUAL NEGATIVE
[2022-01-30] MEDS ORDERED: POTASSIUM CHLORIDE 20 MEQ TABLET PO STA (23:00)
[2022-01-30 23:13] VITALS: BP 115/70
== END 2022-01-30 23:15 | disposition home or self-care (01) ==
LOC: ED 20:33
DX: R07.9 Chest pain, unspecified (principal); R11.0 Nausea; E87.6 Hypokalemia
CPT/HCPCS: 36415; 71045; 80053; 81003; 81025; 83735; 84484; 85025; 93005; 96360; 99284; A9270; 81001; 87086

== ENCOUNTER 2022-02-05 08:00 | Outpatient (CLI) | payer MEDICAID ==
[2022-02-05 15:30] LABS: BILIRUBIN,URINE NEGATIVE (NEGATIVE); KETONES,URINE (UA) NEGATIVE (NEGATIVE); LEUKOCYTE ESTERASE, URINE MODERATE (NEGATIVE); OCCULT BLOOD,URINE LARGE (NEGATIVE); PH,URINE 7.5 PH (5.0-7.5)
[2022-02-05 15:33] LABS: CLARITY,URINE CLEAR (CLEAR)
[2022-02-05 15:56] LABS: BACTERIA,URINE Few /HPF (None Seen); MUCUS,URINE Few Strands; SQUAMOUS EPITHELIAL CELL,UR FEW Squamous (<= Few)
== END 2022-02-05 23:59 ==
LOC: LAB.S 08:00
PROVIDERS: ATTEND Emergency Medicine
DX: R30.0 Dysuria (principal)
CPT/HCPCS: 81001; 87077; 87086

== ENCOUNTER 2022-03-24 08:00 | Outpatient (CLI) | payer MEDICAID ==
--- NOTE | 2022-03-24 17:26 | XRAY Report ---
PROCEDURE: Toe(s) LT INDICATIONS: CONTUSION OF LEFT GREAT TOE TECHNIQUE: 3 views of the first toe(s) acquired. COMPARISON: None FINDINGS: Bones: No fractures or dislocations. No suspicious bony lesions. Soft tissues: No suspicious soft tissue densities. Soft tissue swelling. IMPRESSION: No acute osseous abnormalities. If clinical symptoms persist, a follow-up examination in 7-10 days or advanced imaging such as CT or MRI is suggested. Reviewed by: Oriana Zuluaga MD on 03/24/2022 4:25 PM [facility] Approved by: Oriana uZluaga MD on 03/24/2022 4:25 PM AKARIANE Station ID: [id number]
[2022-03-24 18:52] LABS: BASOPHILS % (AUTO) 0.1 %; HCT - HEMATOCRIT 40.8 % (37.0-47.0); HGB - HEMOGLOBIN 13.3 g/dL (12.0-16.0); LYMPHOCYTES # (AUTO) 2.4 10^3/uL (1.5-3.5); LYMPHOCYTES % (AUTO) 25.8 %; MEAN CORPUSCULAR HEMOGLOBIN 31.5 pg (27.0-31.0); MEAN CORPUSCULAR HGB CONC 32.6 g/dL (32.0-36.0); MEAN CORPUSCULAR VOLUME 96.7 fL (81.0-99.0); MEAN PLATELET VOLUME 10.8 fL (7.9-10.8); MONOCYTES # (AUTO) 0.6 10^3/uL (0.0-1.0); NEUTROPHILS # (AUTO) 6.2 10^3/uL (1.5-6.6); NEUTROPHILS % (AUTO) 67.8 %; PLT - PLATELET COUNT 238 10^3/uL (130-450); RED BLOOD COUNT 4.22 10^6/uL (4.20-5.40); RED CELL DISTRIBUTION WIDTH 12.8 % (12.0-15.0); WHITE BLOOD COUNT 9.1 x10^3/uL (4.8-10.8)
[2022-03-24 19:14] LABS: ALBUMIN 4.5 g/dL (3.2-5.5); ALBUMIN/GLOBULIN RATIO 1.6 (1.0-2.2); ALKALINE PHOSPHATASE 26 IU/L (42-121); ALT ALANINE AMINOTRANSFERASE 17 IU/L (10-60); AST ASPARTATE AMINOTRANSFERASE 20 IU/L (10-42); BILIRUBIN,TOTAL 0.2 mg/dL (0.2-1.0); BUN - BLOOD UREA NITROGEN 14 mg/dL (6-20); CALCIUM 9.6 mg/dL (8.5-10.3); CARBON DIOXIDE - CO2 27 mmol/L (21-32); CHLORIDE 104 mmol/L (101-111); CHOLESTEROL 173 mg/dL; CREATININE 0.7 mg/dL (0.4-1.0); GFR - MDRD 99 (>89); GLUCOSE 104 mg/dL (70-100); HDL CHOLESTEROL 57 mg/dL; LDL CHOLESTEROL,CALCULATED 98 mg/dL; LDL/HDL RATIO 1.7 (<4.4); POTASSIUM 3.9 mmol/L (3.5-5.0); SODIUM 141 mmol/L (135-145); TOTAL PROTEIN 7.4 g/dL (6.7-8.2); TRIGLYCERIDES 88 mg/dL; VLDL CHOLESTEROL 18 mg/dL
[2022-03-24 19:24] LABS: THYROID STIMULATING HORMONE 0.9 uIU/mL (0.34-5.60)
[2022-03-24 20:49] LABS: ESTIMATED AVERAGE GLUCOSE 358 mg/dL (70-100); HEMOGLOBIN A1c% 14.1 % (4.27-6.07)
== END 2022-03-24 23:59 | disposition home or self-care (01) ==
LOC: DI.S 08:00
PROVIDERS: ATTEND Physician Assistant Medical
DX: S90.112A Contusion of left great toe without damage to nail, initial encounter (principal); Z51.81 Encounter for therapeutic drug level monitoring; F41.1 Generalized anxiety disorder
CPT/HCPCS: 36415; 73660; 80053; 80061; 83036; 83721; 84443; 85025

== ENCOUNTER 2022-03-26 15:11 | Outpatient (CLI) | payer MEDICAID ==
[2022-03-26 20:37] LABS: ESTIMATED AVERAGE GLUCOSE 111 mg/dL (70-100); HEMOGLOBIN A1c% 5.5 % (4.27-6.07)
== END 2022-03-26 15:12 | disposition home or self-care (01) ==
LOC: LAB.S 15:11
PROVIDERS: ATTEND Physician Assistant Medical
DX: R89.8 Other abnormal findings in specimens from other organs, systems and tissues (principal)
CPT/HCPCS: 36415; 83036

== ENCOUNTER 2022-07-25 08:00 | Outpatient (CLI) | payer MEDICAID ==
[2022-07-25 14:40] LABS: BILIRUBIN,URINE NEGATIVE (NEGATIVE); GLUCOSE, URINE (UA) NEGATIVE (NEGATIVE); KETONES,URINE (UA) NEGATIVE (NEGATIVE); LEUKOCYTE ESTERASE, URINE TRACE (NEGATIVE); NITRITE,URINE NEGATIVE (NEGATIVE); OCCULT BLOOD,URINE NEGATIVE (NEGATIVE); PROTEIN,URINE NEGATIVE (NEGATIVE); UROBILINOGEN,URINE 0.2 (NORMAL) E.U./dL (NORMAL)
[2022-07-25 14:52] LABS: CLARITY,URINE CLEAR (CLEAR)
[2022-07-25 15:09] LABS: BACTERIA,URINE Rare /HPF (None Seen); EPITHELIAL CELLS,UR FEW Transitional /HPF (<= Few); RBC,URINE 0-5 /HPF (0-5); SQUAMOUS EPITHELIAL CELL,UR FEW Squamous (<= Few)
== END 2022-07-25 23:59 | disposition home or self-care (01) ==
LOC: LAB.S 08:00
PROVIDERS: ATTEND Emergency Medicine
DX: N76.0 Acute vaginitis (principal)
CPT/HCPCS: 81001; 87086

== ENCOUNTER 2022-09-07 08:00 | Outpatient (CLI) | payer MEDICAID ==
--- NOTE | 2022-09-07 11:33 | XRAY Report ---
PROCEDURE: Chest 2 View X-Ray INDICATIONS: SHORTNESS OF BREATH/COUGH TECHNIQUE: Two views of the chest COMPARISON: None. FINDINGS: Normal cardiac, mediastinal, and hilar contours. No visible pleural effusion or findings of pneumotho rax. The lungs are clear. Mildly hyperexpanded lungs consistent with asthma in a patient of this age. IMPRESSION: Mildly hyperexpanded lungs suggesting asthma or other underlying chronic obstructive pulmonary disord er. No acute finding. Reviewed by: Ankit Proctor MD on 09/07/2022 11:31 AM PDT Approved by: Ankit Proctor MD on 09/07/2022 11:31 AM PDT Station ID: [id number]
== END 2022-09-07 08:01 | disposition home or self-care (01) ==
LOC: DI.S 08:00
PROVIDERS: ATTEND Physician Assistant Medical
DX: R06.02 Shortness of breath (principal); R05.1 Acute cough

== ENCOUNTER 2022-11-24 16:19 | Emergency (ER) | payer BC, MEDICAID ==
--- OUTSIDE RECORDS SUMMARY | 2022-11-24 16:29 | EXTERNAL MEDICAL SUMMARY RPT | Continuity of Care Document ---
:1990 Author Organization [place] Address [address] [place] [address] Phone Care Team Providers Name Role Phone Unavailable Unavailable Unavailable Yesica Schroeder Unavailable Unavailable Allergies No information. Encounters No information. Functional Status No information. Immunizations No information. Medications date description facility 2022-09-10 00:00 IPRATROPIUM-ALBUTEROL [facility] [place] 2022-09-10 00:00 benzonatate [facility] [place] 2022-09-10 00:00 benzonatate [facility] [place] 2022-09-10 00:00 benzonatate [facility] [place] 2022-09-10 00:00 ALBUTEROL SULFATE [facility] [place] 2022-09-10 00:00 benzonatate [facility] [place] Problems date description facility 2022-09-07 00:00 Dyspnea [facility] [place] 2022-09-07 00:00 Acute bronchitis [facility] [place] [facility] 2022-09-07 00:00 Cough [facility] [place] 2022-09-07 00:00 Acute bronchitis with bronchospasm [facility] [place] [facility] 2022-09-07 00:00 Acute bronchitis, unspecified [facility] [place] 2022-09-07 00:00 Acute cough [facility] [place] 2022-09-07 00:00 Shortness of breath [facility] [place] Procedures date description facility 2022-09-07 00:00 Visit Code Hold [facility] [place] 2022-09-10 00:00 Visit Code Hold [facility] [place] 2022-09-07 00:00 COVID, FLU A+B Antigen (In Clinic [facility] Free Test) [facility] [place] 2022-09-07 00:00 Nebulizer Treatment [facility] [place] 2022-09-10 00:00 Albuterol 0.083% 2.5mg/3ml [facility] [place] 2022-09-10 00:00 Duoneb [facility] [place] Results/Labs test date author facility value unit interpret ation Result panel 1 (unknown) (no date) (unknown) Walk-In (no value) (units (unk nown) Clinic Primary unknown) [facility] Result panel 2 (unknown) (no date) (unknown) Walk-In (no value) (units (unk nown) Clinic Primary unknown) [facility] Result panel 3 (unknown) (no date) (unknown) Walk-In (no value) (units (unk nown) Clinic Primary unknown) [facility] Result panel 4 (unknown) (no date) (unknown) Walk-In (no value) (units (unk nown) Clinic Primary unknown) [facility] Result panel 5 (unknown) (no date) (unknown) Walk-In (no value) (units (unk nown) Clinic Primary unknown) [facility] Result panel 6 (unknown) (no date) (unknown) Walk-In (no value) (units (unk nown) Clinic Primary unknown) [facility] Result panel 7 (unknown) (no date) (unknown) Walk-In (no value) (units (unk nown) Clinic Primary unknown) [facility] Social History date description facility 2022-09-07 00:00 Never smoker [facility] [place] Vital Signs date measurement value units 2022-09-07 00:00 BMI 19.51 kg/m2 2022-09-07 00:00 BP_diastolic 82 mmHg 2022-09-07 00:00 BP_systolic 124 mmHg 2022-09-07 00:00 heart_rate 97 /min 2022-09-07 00:00 height_metric 163.83 cm 2022-09-07 00:00 height_standard 64.5 in 2022-09-07 00:00 respiration_rate 16 /min 2022-09-07 00:00 temperature_metric 37.78 C 2022-09-07 00:00 temperature_standard 100 F 2022-09-07 00:00 weight_metric 52.16 kg 2022-09-07 00:00 weight_standard 115 lb
[2022-11-24 16:30] VITALS: BP 116/75
--- NOTE | 2022-11-24 16:34 | ED Physician Documentation ---
History of Present Illness - Stated complaint Stated Complaint: FEMALE , - Chief complaint Chief Complaint: Abd Pain - Additonal information Additional information: History obtained by patient. Reliable historian. 32-year-old female who reports being approximately 6 weeks presents to the emergency department for vaginal bleeding and cramping. Symptoms began this morning. . LMP 10/12/2022. She did carry 2 pregnancies to term both vaginal deliveries without complications. She has some nausea but no vomiting. No fevers. No urinary symptoms. No pertinent past surgical history. She has not yet established with an OB for this . She has not had an ultrasound. Review of Systems Constitutional: denies: Fever, Chills Cardiac: reports: Reviewed and negative Respiratory: reports: Reviewed and negative GI: reports: Abdominal Pain, Nausea. 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 : None HEENT: None Psych: Depression, Anxiety, Eating disorder Musculoskeletal: None Derm: None - Past Surgical History Past Surgical History: No - Present Medications Home Medications: Ambulatory Orders Medication Instructions Recorded Confirmed QUEtiapine [SEROquel] 400 mg PO DAILY PM 02/20/19 11/24/22 Acetaminophen [Tylenol] 650 mg PO Q6H PRN #30 tab 02/28/21 11/24/22 Mirtazapine 45 mg PO DAILY 01/30/22 11/24/22 - Allergies Allergies/Adverse Reactions: Allergies Allergy/AdvReac Type Severity Reaction Status Date / Time amoxicillin Allergy Unknown Verified 11/24/22 16:30 - Social History Does the pt smoke?: No Smoking Status: Never smoker Does the pt drink ETOH?: Yes Does the pt have substance abuse?: Yes - Immunizations Immunizations are current?: Yes - POLST Patient has POLST: No PD ED PE NORMAL - General General: Alert and oriented X 3, No acute distress - HEENT HEENT: PERRL - Neck Neck: Supple, no meningeal sign, No adenopathy - Cardiac Cardiac: RRR, No murmur - Respiratory Respiratory: No respiratory distress, Clear bilaterally - Abdomen Abdomen: Normal bowel sounds, Soft. No: Non tender (Mild suprapubic tenderness. No lateralizing tenderness. 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 Eye Opening: Spontaneous Motor: Obeys Commands Verbal: Oriented GCS Score: 15 Results - Vitals Vitals: Vital Signs - 24 hr 11/24/22 16:27 Temperature 98.7 C H Heart Rate 97 Respiratory 16 Rate Blood Pressure 116/75 O2 Saturation 99 Oxygen O2 Source Room air - Labs Labs: Laboratory Tests 11/24/22 11/24/22 11/24/22 16:37 16:37 16:37 WBC 9.5 RBC 4.03 L Hgb 12.5 Hct 37.9 MCV 94.0 MCH 31.0 MCHC 33.0 RDW 12.4 Plt Count 242 MPV 9.6 Neut # (Auto) 6.1 Lymph # (Auto) 2.6 [place] # (Auto) 0.8 Eos # (Auto) 0.0 Baso # (Auto) 0.0 Absolute Nucleated RBC 0.00 Nucleated RBC % 0.0 Sodium 139 Potassium 3.4 L Chloride 103 Carbon Dioxide 26 Anion Gap 10.0 BUN 14 Creatinine 0.7 Estimated GFR (MDRD) 98 Glucose 119 H Calcium 9.8 HCG, Quant 67504.00 Urine Color Urine Clarity Urine pH Ur Specific [place] Urine Protein Urine Glucose (UA) Urine Ketones Urine Occult Blood Urine Nitrite Urine Bilirubin Urine Urobilinogen Ur Leukocyte Esterase Ur Microscopic Review Urine Culture Comments Blood Type 11/24/22 11/24/22 16:37 17:09 WBC RBC Hgb Hct MCV MCH MCHC RDW Plt Count MPV Neut # (Auto) Lymph # (Auto) [place] # (Auto) Eos # (Auto) Baso # (Auto) Absolute Nucleated RBC Nucleated RBC % Sodium Potassium Chloride Carbon Dioxide Anion Gap BUN Creatinine Estimated GFR (MDRD) Glucose Calcium HCG, Quant Urine Color YELLOW Urine Clarity CLEAR Urine pH 7.5 Ur Specific [place] 1.010 Urine Protein NEGATIVE Urine Glucose (UA) NEGATIVE Urine Ketones NEGATIVE Urine Occult Blood NEGATIVE Urine Nitrite NEGATIVE Urine Bilirubin NEGATIVE Urine Urobilinogen 0.2 (NORMAL) Ur Leukocyte Esterase NEGATIVE Ur Microscopic Review NOT INDICATED Urine Culture Comments NOT INDICATED Blood Type A POSITIVE - Rads (name of study) pelvic US Radiology: Other (Per computer technologist: Positive gestational sac with IUP approximately 5 weeks 6 days. Right corpus luteal cyst. Moderate subchorionic hemorrhage) PD Medical Decision Making - ED course Complexity details: reviewed results, re-evaluated patient, considered differential, d/w patient ED course: 32-year-old female presents to the emergency department for evaluation of light vaginal bleeding and cramping that began today. . LMP 10/12/2022. She has not yet established with an OB. We did obtain a CBC that showed no worrisome findings such as leukocytosis or severe anemia. Her electrolytes showed a mild hypokalemia. She was repleted with 40 of potassium here in the emergency department. Urine showed no signs of infection. She is Rh+. We did complete a pelvic ultrasound to rule out ectopic given mild tenderness. There is a gestational sac measuring at 5 weeks 6 days within the uterus. She does have a moderate associated subchorionic hemorrhage. I discussed these findings with the patient and her at the bedside. They are working to try and establish with an OB. We discussed that the subchorionic is a threat to the and as such will be discharged with a diagnosis of threatened miscarriage. We also discussed emergent return precautions for worsening bleeding, fever syncope and racing heart. Departure - Departure Disposition: 01 Home, Self Care Clinical Impression: Threatened miscarriage in early , Hypokalemia Subchorionic hemorrhage in first trimester Qualifiers: Fetus number: single or unspecified fetus Qualified Code(s): O41.8X10 - Other specified disorders of amniotic fluid and membranes, first trimester, not applicable or unspecified; O46.8X1 - Other antepartum hemorrhage, first trimester Condition: Stable Record reviewed to determine appropriate education?: Yes Instructions: ED Miscarriage Poss Comments: Ping machado are seen today in the emergency department because you began having some cramping and vaginal bleeding this morning. You are approximately 5 weeks 6 days on ultrasound. You do have a gestational sac but it is far too early at this time to see a heart rate. There was not a finding of a moderate sized subchorionic hemorrhage. This is a area of bleeding between the placenta and uterus. This can lead to miscarriage. However many women do have subchorionic hemorrhage/hematoma will go on to have normal pregnancies. This is often a cause of vaginal bleeding in the first trimester Your labs today did show a very mild hypokalemia or decreased potassium. You were given some potassium here in the emergency department. This however does not put you at risk for miscarriage. You can continue your usual care at home. It is important you follow closely with an OB provider. Reasons to return to the emergency department would be the development of severe vaginal bleeding measured as saturating a menstrual pad or tampon every hour for 6 or more hours, development of fevers, or any fainting episodes or severe shortness of air.
[2022-11-24 16:44] LABS: BASOPHILS % (AUTO) 0.2 %; HCT - HEMATOCRIT 37.9 % (37.0-47.0); HGB - HEMOGLOBIN 12.5 g/dL (12.0-16.0); LYMPHOCYTES # (AUTO) 2.6 10^3/uL (1.5-3.5); LYMPHOCYTES % (AUTO) 27.1 %; MEAN PLATELET VOLUME 9.6 fL (7.9-10.8); MONOCYTES # (AUTO) 0.8 10^3/uL (0.0-1.0); MONOCYTES % (AUTO) 8.1 %; NEUTROPHILS # (AUTO) 6.1 10^3/uL (1.5-6.6); NEUTROPHILS % (AUTO) 64.4 %; PLT - PLATELET COUNT 242 10^3/uL (130-450); RED BLOOD COUNT 4.03 10^6/uL (4.20-5.40); RED CELL DISTRIBUTION WIDTH 12.4 % (12.0-15.0); WHITE BLOOD COUNT 9.5 x10^3/uL (4.8-10.8)
[2022-11-24 16:52] LABS: CALCIUM 9.8 mg/dL (8.5-10.3); CREATININE 0.7 mg/dL (0.4-1.0); POTASSIUM 3.4 mmol/L (3.5-5.0)
[2022-11-24 17:30] LABS: BILIRUBIN,URINE NEGATIVE (NEGATIVE); GLUCOSE, URINE (UA) NEGATIVE (NEGATIVE); KETONES,URINE (UA) NEGATIVE (NEGATIVE); LEUKOCYTE ESTERASE, URINE NEGATIVE (NEGATIVE); NITRITE,URINE NEGATIVE (NEGATIVE); OCCULT BLOOD,URINE NEGATIVE (NEGATIVE); PH,URINE 7.5 PH (5.0-7.5); PROTEIN,URINE NEGATIVE (NEGATIVE); UROBILINOGEN,URINE 0.2 (NORMAL) E.U./dL (NORMAL)
[2022-11-24 17:32] LABS: CLARITY,URINE CLEAR (CLEAR)
[2022-11-24] MEDS ORDERED: POTASSIUM CHLORIDE 20 MEQ TABLET PO STA (18:08)
--- NOTE | 2022-11-24 18:11 | Ultrasound Report ---
PROCEDURE: OB First Trimester w/TV INDICATIONS: vaginal bleeding 1st trimester OUTSIDE/PRIOR DATING DATA: Last menstrual period (LMP): 10/12/2022. LMP-based estimated date of delivery (ZAIN): 12/07/2022. TECHNIQUE: Real-time scanning was performed of the fetus and maternal pelvic organs, with image documentation. Endovaginal scanning was also performed to better visualize the fetus and maternal ovaries. COMPARISON: None FINDINGS: Intrauterine gestational sac with good trophoblastic reaction measures 1.06 cm in diameter, which wou ld correspond with a 5 week 6 day gestation. Small yolk sac identified, but no internal pole or cardiac motion present. Additionally, there is a perigestational bleed measuring 2.8 x 2.2 x 3.5 cm Measurement variability in dating: +/- 4 weeks by LMP, +/- 7 days by mean sac diameter (use before 6 weeks gestation if crown-rump length not able to be measured), +/- 5 days by crown-rump length (6-12 weeks gestation). Maternal organs: Right-sided corpus luteum cyst measures 2.3 x 2.2 x 2.5 cm. Left ovary unremarkable. No adnexal mass IMPRESSION: Intrauterine gestational sac without pole or cardiac motion. Differential possibilities include normal early , and demise Perigestational complete measures 2.8 x 2.2 cm Reviewed by: Chaka Ott MD on 11/24/2022 5:10 PM [place] Approved by: Chaka Ott MD on 11/24/2022 5:10 PM [place] Station ID: [id number]
== END 2022-11-24 18:27 | disposition home or self-care (01) ==
LOC: ED 16:19
DX: O20.0 Threatened abortion (principal); Z3A.01 Less than 8 weeks gestation of pregnancy; O99.891 Other specified diseases and conditions complicating pregnancy; E87.6 Hypokalemia
CPT/HCPCS: 36415; 76801; 76817; 80048; 81003; 84702; 85025; 86900; 86901; 99284; A9270; 81001; 87086

== ENCOUNTER 2022-12-24 11:32 | Outpatient (CLI) | payer BC ==
--- NOTE | 2022-12-24 14:18 | Ultrasound Report ---
PROCEDURE: OB First Trimester INDICATIONS: POSITIVE TEST OUTSIDE/PRIOR DATING DATA: Last menstrual period (LMP): 10/12/2022. LMP-based estimated date of delivery (ZAIN): 07/19/2023. First dating scan (date and location): To 623. Estimated date of delivery (ZAIN) from first dating scan: 07/19/2023. TECHNIQUE: Real-time scanning was performed of the fetus and maternal pelvic organs, with image documentation. COMPARISON: OB ultrasound 11/24/2022 FINDINGS: Embryo: Single live intrauterine is identified with crown-rump length measuring 3.5 cm cor responding to 10 weeks 3 days. Heart rate: 171 bpm Measurement variability in dating: +/- 4 weeks by LMP, +/- 7 days by mean sac diameter (use before 6 weeks gestation if crown-rump length not able to be measured), +/- 5 days by crown-rump length (6-12 weeks gestation). Maternal organs: Ovaries are within normal limits. IMPRESSION: Single live intrauterine with ultrasound gestational age of 10 weeks 3 days. Recommend follow-up imaging at 20-22 weeks for dates and anatomy. Reviewed by: Ai Nagy MD on 12/24/2022 2:17 PM PST Approved by: Ai Nagy MD on 12/24/2022 2:17 PM PST Station ID: [id number]
== END 2022-12-24 11:33 | disposition home or self-care (01) ==
LOC: DI 11:32
PROVIDERS: ATTEND Nurse Practitioner
DX: O09.891 Supervision of other high risk pregnancies, first trimester (principal); Z3A.10 10 weeks gestation of pregnancy

== ENCOUNTER 2023-02-15 08:00 | Outpatient (CLI) | payer BC, MEDICAID ==
[2023-02-15 15:03] LABS: BILIRUBIN,URINE NEGATIVE (NEGATIVE); GLUCOSE, URINE (UA) NEGATIVE (NEGATIVE); KETONES,URINE (UA) NEGATIVE (NEGATIVE); LEUKOCYTE ESTERASE, URINE SMALL (NEGATIVE); NITRITE,URINE NEGATIVE (NEGATIVE); OCCULT BLOOD,URINE LARGE (NEGATIVE); PROTEIN,URINE NEGATIVE (NEGATIVE); UROBILINOGEN,URINE 0.2 (NORMAL) E.U./dL (NORMAL)
[2023-02-15 15:10] LABS: CLARITY,URINE CLEAR (CLEAR)
[2023-02-15 15:37] LABS: BACTERIA,URINE Rare /HPF (None Seen); SQUAMOUS EPITHELIAL CELL,UR FEW Squamous (<= Few)
== END 2023-02-15 23:59 | disposition home or self-care (01) ==
LOC: LAB.WC 08:00
PROVIDERS: ATTEND Nurse Practitioner
DX: R30.0 Dysuria (principal)
CPT/HCPCS: 81001; 87086

== ENCOUNTER 2023-03-04 16:10 | Outpatient (CLI) | payer MEDICAID | END 2023-03-04 16:11 | disposition home or self-care (01) | LOC: RT 16:10 | PROVIDERS: ATTEND Nurse Practitioner | DX: I45.81 Long QT syndrome (principal) | CPT/HCPCS: 93005 ==

== ENCOUNTER 2023-03-04 21:31 | Outpatient (CLI) | payer MEDICAID ==
[2023-03-04 16:53] LABS: BASOPHILS % (AUTO) 0.3 %; HCT - HEMATOCRIT 39.2 % (37.0-47.0); LYMPHOCYTES # (AUTO) 1.9 10^3/uL (1.5-3.5); LYMPHOCYTES % (AUTO) 16.5 %; MEAN CORPUSCULAR HEMOGLOBIN 32.5 pg (27.0-31.0); MEAN CORPUSCULAR HGB CONC 33.2 g/dL (32.0-36.0); MEAN PLATELET VOLUME 10.1 fL (7.9-10.8); MONOCYTES # (AUTO) 0.8 10^3/uL (0.0-1.0); MONOCYTES % (AUTO) 6.5 %; NEUTROPHILS # (AUTO) 8.8 10^3/uL (1.5-6.6); NEUTROPHILS % (AUTO) 76.1 %; PLT - PLATELET COUNT 219 10^3/uL (130-450); RED CELL DISTRIBUTION WIDTH 12.3 % (12.0-15.0); WHITE BLOOD COUNT 11.5 x10^3/uL (4.8-10.8)
[2023-03-04 17:02] LABS: ALBUMIN 3.4 g/dL (3.2-5.5); ALBUMIN/GLOBULIN RATIO 1.1 (1.0-2.2); BILIRUBIN,TOTAL 0.4 mg/dL (0.2-1.0); CALCIUM 9.1 mg/dL (8.5-10.3); CREATININE 0.7 mg/dL (0.4-1.0); POTASSIUM 3.4 mmol/L (3.5-5.0); TOTAL PROTEIN 6.6 g/dL (6.7-8.2); URIC ACID 4.1 mg/dL (2.6-7.2)
[2023-03-04 17:15] LABS: CREATININE,URINE 19.1 mg/dL
[2023-03-04 17:17] LABS: TOTAL PROTEIN,URINE TIMED < 6 mg/dL
[2023-03-04 17:19] LABS: THYROID STIMULATING HORMONE 2.41 uIU/mL (0.34-5.60)
[2023-03-04 17:21] LABS: FREE T4 (FREE THYROXINE) 0.63 ng/dL (0.58-1.64)
[2023-03-04 17:25] LABS: FERRITIN 7.6 ng/mL (11.0-306.8)
--- NOTE | 2023-03-05 11:41 | Ultrasound Report ---
PROCEDURE: OB Detailed Eval INDICATIONS: SUPERVISION OF OUTSIDE/PRIOR DATING DATA: Last menstrual period (LMP): 10/12/2022. LMP-based estimated date of delivery (ZAIN): 07/19/2023. First dating scan (date and location): 12/24/2022. Estimated date of delivery (ZAIN) from first dating scan: 07/19/2023. TECHNIQUE: Real-time scanning was performed of the fetus, with image documentation and biometric measurements. Endovaginal scanning: Not performed COMPARISON: 12/24/2022 FINDINGS: General: A single living intrauterine gestation is present. Presentation: Breech Placenta: Placental position is posterior, without previa. Amniotic fluid index: 11.7 cm, normal for gestational age. heart rate: 157 beats per minute. Maternal cervical canal: 3.4 cm long; normal length is 2.5 cm or more. biometrics: Biparietal diameter: 4.5 cm 19 weeks 4 days Head circumference: 17.1 cm 20 weeks 5 days Abdominal circumference: 15.1 cm 20 weeks 2 days Femur length: 3.2 cm 19 weeks 6 days Estimated gestational age from initial scan: 20 weeks 3 days. Composite gestational age from present scan: 19 weeks 6 days Estimated weight and percentile: 329 g, 26th percentile Measurement variability in biometric dating: +/- 10 days from 12-20 weeks gestation, +/- 2 weeks from 20-30 weeks gestation, +/- 3 weeks at 30 weeks gestation or later. Anatomic survey: Neuro: Ventricles are normal at less than 10 mm. Cisterna magna is normal at 3-11 mm. Cerebellum i s normal in size and morphology. Nuchal skin fold: Normal at less than 6 mm between 14 and 20 weeks gestational age. Face: Nose and lips, facial profile are normal. Spine: No evidence for spina bifida. Heart: 4-chambered heart is present, with normal ventricular outflow tracts. Diaphragm: Diaphragm is intact. Stomach: Left-sided stomach is present. Kidneys: No hydronephrosis. Normal is less than 5 mm in 2nd trimester, less than 7 mm in 3rd trimester. Cord: 3 vessel cord has orthotopic insertion. Bladder: Normal in size. Extremities: All 4 extremities are visualized. IMPRESSION: 1. Single living intrauterine . 2. Normal second trimester anatomy survey. No anomalies detected at this time. Reviewed by: Dimitri Felix MD on 03/05/2023 11:40 AM PDT Approved by: Dimitri Felix MD on 03/05/2023 11:40 AM PDT Station ID: [id number]
== END 2023-03-04 21:32 | disposition home or self-care (01) ==
LOC: DI 21:31
PROVIDERS: ATTEND Nurse Practitioner
DX: O09.892 Supervision of other high risk pregnancies, second trimester (principal); Z36.89 Encounter for other specified antenatal screening; O99.891 Other specified diseases and conditions complicating pregnancy; R42 Dizziness and giddiness; Z3A.19 19 weeks gestation of pregnancy
CPT/HCPCS: 36415; 80053; 82570; 82728; 84156; 84439; 84443; 84550; 85025

== ENCOUNTER 2023-03-28 08:00 | Outpatient (CLI) | payer MEDICAID ==
[2023-03-29 19:43] LABS: BACTERIAL VAGINOSIS DNA NEGATIVE (NEGATIVE); CANDIDA GLABRATA DNA NEGATIVE (NEGATIVE); CANDIDA GROUP DNA NEGATIVE (NEGATIVE); CANDIDA KRUSEI DNA NEGATIVE (NEGATIVE); TRICHOMONAS VAGINALIS DNA NEGATIVE (NEGATIVE)
[2023-03-29 21:12] LABS: CHLAMYDIA TRACHOMATIS DNA NEGATIVE (NEGATIVE)
[2023-03-29 21:13] LABS: NEISSERIA GONORRHOEAE DNA NEGATIVE (NEGATIVE)
== END 2023-03-28 23:59 | disposition home or self-care (01) ==
LOC: LAB.WC 08:00
PROVIDERS: ATTEND Obstetrics & Gynecology
DX: N76.0 Acute vaginitis (principal); Z11.3 Encounter for screening for infections with a predominantly sexual mode of transmission
CPT/HCPCS: 81514; 87491; 87591; 87661

== ENCOUNTER 2023-05-13 09:25 | Outpatient (CLI) | payer MEDICAID ==
[2023-05-13 10:44] LABS: HCT - HEMATOCRIT 35.5 % (37.0-47.0); HGB - HEMOGLOBIN 11.6 g/dL (12.0-16.0); MEAN CORPUSCULAR HEMOGLOBIN 31.1 pg (27.0-31.0); MEAN CORPUSCULAR HGB CONC 32.7 g/dL (32.0-36.0); MEAN CORPUSCULAR VOLUME 95.2 fL (81.0-99.0); MEAN PLATELET VOLUME 9.2 fL (7.9-10.8); RED BLOOD COUNT 3.73 10^6/uL (4.20-5.40); RED CELL DISTRIBUTION WIDTH 13.2 % (12.0-15.0); WHITE BLOOD COUNT 7.2 x10^3/uL (4.8-10.8)
== END 2023-05-13 09:26 | disposition home or self-care (01) ==
LOC: LAB 09:25
PROVIDERS: ATTEND Obstetrics & Gynecology
DX: O09.892 Supervision of other high risk pregnancies, second trimester (principal)
CPT/HCPCS: 36415; 82950; 85027

== ENCOUNTER 2023-05-23 15:50 | Outpatient (CLI) | payer MEDICAID ==
[2023-05-23 16:18] LABS: ALBUMIN 3.2 g/dL (3.2-5.5); BILIRUBIN,TOTAL 0.4 mg/dL (0.2-1.0); CALCIUM 8.6 mg/dL (8.5-10.3); CREATININE 0.6 mg/dL (0.4-1.0); POTASSIUM 3.7 mmol/L (3.5-5.0); TOTAL PROTEIN 6.5 g/dL (6.7-8.2); URIC ACID 3.9 mg/dL (2.6-7.2)
[2023-05-23 16:20] LABS: CREATININE,URINE 81.1 mg/dL; PROTEIN/CREATININE RATIO,URINE 0.1 (<=0.2)
== END 2023-05-23 15:51 | disposition home or self-care (01) ==
LOC: LAB 15:50
PROVIDERS: ATTEND Nurse Practitioner
DX: R60.0 Localized edema (principal); Z79.899 Other long term (current) drug therapy
CPT/HCPCS: 36415; 80053; 80175; 82570; 84156; 84550

== ENCOUNTER 2023-06-21 08:00 | Outpatient (CLI) | payer MEDICAID | END 2023-06-21 23:59 | disposition home or self-care (01) | LOC: LAB.WC 08:00 | PROVIDERS: ATTEND Nurse Practitioner | DX: O09.893 Supervision of other high risk pregnancies, third trimester (principal) | CPT/HCPCS: 87797 ==

== ENCOUNTER 2023-06-21 13:30 | Outpatient (CLI) | payer MEDICAID ==
[2023-06-21 14:00] LABS: CREATININE,URINE 36.7 mg/dL; PROTEIN/CREATININE RATIO,URINE 0.2 (<=0.2)
[2023-06-21 14:01] LABS: ALBUMIN 3.4 g/dL (3.2-5.5); ALBUMIN/GLOBULIN RATIO 1.2 (1.0-2.2); BILIRUBIN,TOTAL 0.2 mg/dL (0.2-1.0); CALCIUM 8.6 mg/dL (8.5-10.3); CREATININE 0.6 mg/dL (0.6-1.3); TOTAL PROTEIN 6.2 g/dL (6.4-8.9); URIC ACID 4.3 mg/dL (2.3-6.6)
== END 2023-06-21 13:31 | disposition home or self-care (01) ==
LOC: LAB 13:30
PROVIDERS: ATTEND Nurse Practitioner
DX: R60.0 Localized edema (principal)
CPT/HCPCS: 36415; 80053; 82570; 84156; 84550

== ENCOUNTER 2023-07-09 14:29 | Outpatient (CLI) | payer MEDICAID ==
--- NOTE | 2023-07-10 16:35 | Ultrasound Report ---
PROCEDURE: OB F/U or Repeat INDICATIONS: EXCESSIVE WEIGHT GAIN IN OUTSIDE/PRIOR DATING DATA: Last menstrual period (LMP): 10/12/2022. LMP-based estimated date of delivery (ZAIN): 07/19/2023. First dating scan (date and location): To 623. Estimated date of delivery (ZAIN) from first dating scan: 07/19/2023. The below data below was generated using the clinical/ultrasound ZAIN of 07/19/2023 TECHNIQUE: Real-time scanning was performed of the fetus, with image documentation and biometric measurements. COMPARISON: OB ultrasound 03/04/2023 FINDINGS: General: A single living intrauterine gestation is present. Presentation: Vertex Placenta: Placental position is posterior, without previa. Amniotic fluid index: 16 cm, within normal limits for gestational age. heart rate: 138 beats per minute. Maternal cervical canal: 4.6 cm long; normal length is 2.5 cm or more. biometrics: Biparietal diameter: 8.1 cm 32 weeks 5 days Head circumference: 31.7 cm 35 weeks 4 days Abdominal circumference: 23.4 cm 37 weeks 2 days Femur length: 7.0 cm 35 weeks 5 days Estimated gestational age from initial scan: 38 weeks 4 days Composite gestational age from present scan: 35 weeks 2 days Estimated weight and percentile: 2070 g, 13th percentile Measurement variability in biometric dating: +/- 10 days from 12-20 weeks gestation, +/- 2 weeks from 20-30 weeks gestation, +/- 3 weeks at 30 weeks gestation or more. Other: Not applicable. IMPRESSION: Single live intrauterine with ultrasound gestational age today of 35 weeks 2 days compared to 38 weeks 4 days from initial ultrasound. weight is at the 13th percentile, noting decreased percentile growth of femur length and bipari etal diameter. Recommend close interval follow-up as intrauterine growth restriction cannot be exclud ed. Reviewed by: Ai Nagy MD on 07/10/2023 4:34 PM PDT Approved by: Ai Nagy MD on 07/10/2023 4:34 PM PDT Station ID: [id number]
== END 2023-07-09 14:30 | disposition home or self-care (01) ==
LOC: DI 14:29
PROVIDERS: ATTEND Obstetrics & Gynecology
DX: O26.03 Excessive weight gain in pregnancy, third trimester (principal); Z3A.35 35 weeks gestation of pregnancy

== ENCOUNTER 2023-07-09 18:19 | Outpatient (CLI) | payer MEDICAID | END 2023-07-09 18:20 | disposition home or self-care (01) | LOC: DI 18:19 | PROVIDERS: ATTEND Obstetrics & Gynecology | DX: Z53.9 Procedure and treatment not carried out, unspecified reason (principal) ==

== ENCOUNTER 2023-07-17 11:23 | Inpatient (IN) | payer MEDICAID ==
[2023-07-17] MEDS ORDERED: METHYLERGONOVINE 0.2 MG/ML VIAL IM PRN (12:26)
[2023-07-17] MEDS ORDERED: miSOPROStoL 200 MCG TABLET BC PRN (12:26)
[2023-07-17] MEDS ORDERED: TRANEXAMIC ACID IN NACL 1,000 MG/100 ML BAG IV PRN (12:26)
[2023-07-17] MEDS ORDERED: NIFEdipine 10 MG CAPSULE PO PRN (12:26)
[2023-07-17] MEDS ORDERED: CARBOPROST TROMETHAMINE 250 MCG/ML AMP IM PRN (12:26)
[2023-07-17] MEDS ORDERED: fentaNYL 100 MCG/2 ML VIAL IVP PRN (12:26)
[2023-07-17] MEDS ORDERED: miSOPROStoL 200 MCG TABLET PR PRN (12:26)
[2023-07-17] MEDS ORDERED: OXYTOCIN 10 UNIT/ML VIAL IM PRN (12:26)
[2023-07-17] MEDS ORDERED: lidocaine 1% 20 ML MDV ID PRN (12:26)
--- NOTE | 2023-07-17 12:32 | HISTORY & PHYSICAL EXAMINATION ---
Admit History - Visit Reason Visit Reason: Contractions - : 5 Parity: 2 : 2 Care: positive: [facility] Risk/History: positive: None Complications This : positive: None Smoking Status: Never smoker - Mother's Labs Mother's Blood Type: positive: A Mother's RH: positive: Positive GBS: positive: Group B Step Negative Rubella Status: positive: Non-immune - HPI Diagnosis/Indication for NST: Other (labor) Current EDU 07/19/23 Gestation 39 Weeks and 5 Days 5 Para 2 Vital Signs Temperature 98.1 F 07/17/23 11:35 Heart Rate 90 07/17/23 11:35 Respiratory Rate 18 07/17/23 11:35 Blood Pressure 117/73 07/17/23 11:35 Temperature 98.1 F 07/17/23 11:35 Heart Rate 90 07/17/23 11:35 Respiratory Rate 18 07/17/23 11:35 Blood Pressure 117/73 07/17/23 11:35 O2 Saturation If not protocol: Oxygen Flow, liters/minute - NST Procedure NST Procedure Start Date 07/17/23 Start Time 11:31 Stop Time 12:00 Vibroacoustic Stimulation Used No Patient States Movement Yes Full term Reactive Meds/Allgy - Home Medications Home Medications: Ambulatory Orders Medication Instructions Recorded Confirmed QUEtiapine [SEROquel] 400 mg PO DAILY PM 02/20/19 11/24/22 Acetaminophen [Tylenol] 650 mg PO Q6H PRN #30 tab 02/28/21 11/24/22 Mirtazapine 45 mg PO DAILY 01/30/22 11/24/22 - Allergies Allergies/Adverse Reactions: Allergies Allergy/AdvReac Type Severity Reaction Status Date / Time amoxicillin Allergy Unknown Verified 11/24/22 16:30 Review of Systems - All Other Systems All Other Systems: reports: Reviewed and negative Physical - Abdominal Exam Vital Signs: Temp Pulse Resp BP Pulse Ox O2 Flow Rate 98.1 F 90 18 117/73 07/17/23 11:35 07/17/23 11:35 07/17/23 11:35 07/17/23 11:35 Contraction Frequency (min/apart): 3 Contraction Intensity: positive: Strong - Monitoring Strip Review: positive: Category I - Presentation Presentation: positive: Vertex - Vaginal Exam Membranes: positive: Membranes intact Dilation (in cm): 6 - Speculum Exam Speculum Exam Performed: positive: No Plan for Labor - Plan For Labor I expect patient to be DC'd or transferred within 96 hours.: Yes Plan for Labor: Patient is a 33-year-old -0-2-2 at term presenting in labor 1. labor: Expectant management 2. History of previous shoulder dystocia: Discussed increased risk of recurrent shoulder dystocia. Risks and benefits of labor Discussed with patient including risk of repeat shoulder dystocia and risk of brachial palsy discussed 3. GBS negative 4. Pain management: Nitrous oxide 5.History of hemorrhage: Patient was on Lovenox and transferred to heparin, she has heterozygous factor V Leiden with no history of DVT or PE.Patient declines IV access. I discussed risk of hemorrhage and would place IV if needed for heavy bleeding after delivery. Patient is okay with IM Pitocin. 6. Bipolar disorder: Patient currently on Haldol 1 mg every morning and 3 mg at bedtime. Lamictal, folic acid, and trazodone.
[2023-07-17] MEDS ORDERED: ONDANSETRON ODT 4 MG TABLET TL PRN (12:52)
[2023-07-17] MEDS ORDERED: LACTATED RINGERS 0 ML ONE (13:06)
--- OUTSIDE RECORDS SUMMARY | 2023-07-17 13:09 | EXTERNAL MEDICAL SUMMARY RPT | Continuity of Care Document ---
Author Name Unknown Address [address] [place] [address] Phone Organization [facility] Address [address] [place] [address] Phone Care Team Providers Care Speaker Mounter Name Role Phone Unavailable Unavailable Unavailable Yesica Schroeder Unavailable Unavailable Medications date description facility 2023-05-23 00:00 metoclopramide hcl [facility] 2023-04-23 00:00 [facility]operidol [facility] 2023-05-08 00:00 haloperidol [facility] 2023-05-13 00:00 haloperidol [facility] 2023-05-17 00:00 haloperidol [facility] 2023-05-19 00:00 haloperidol [facility] 2023-05-22 00:00 haloperidol [facility] 2023-05-23 00:00 haloperidol [facility] 2023-05-27 00:00 haloperidol [facility] 2023-06-13 00:00 haloperidol [facility] 2023-06-17 00:00 haloperidol [facility] 2023-06-21 00:00 haloperidol [facility] 2023-06-24 00:00 haloperidol [facility] 2023-06-27 00:00 haloperidol [facility] 2023-07-10 00:00 haloperidol [facility] 2023-07-11 00:00 haloperidol [facility] 2023-04-23 00:00 mirtazapine [facility] [place] 2023-05-08 00:00 mirtazapine [facility] [place] 2023-05-13 00:00 mirtazapine [facility] [place] 2023-05-17 00:00 mirtazapine [facility] [place] 2023-05-19 00:00 mirtazapine [facility] [place] 2023-05-22 00:00 mirtazapine [facility] [place] 2023-05-23 00:00 mirtazapine [facility] [place] 2023-05-27 00:00 mirtazapine [facility] [place] 2023-06-13 00:00 mirtazapine [facility] [place] 2023-06-17 00:00 mirtazapine [facility] [place] 2023-06-21 00:00 mirtazapine [facility] [place] 2023-06-24 00:00 mirtazapine [facility] [place] 2023-06-27 00:00 mirtazapine [facility] [place] 2023-07-10 00:00 mirtazapine [facility] [place] 2023-07-11 00:00 mirtazapine [facility] [place] 2023-04-23 00:00 folic acid [facility] [place] 2023-05-08 00:00 folic acid [facility] [place] 2023-05-13 00:00 folic acid [facility] [place] 2023-05-17 00:00 folic acid [facility] [place] 2023-05-19 00:00 folic acid [facility] [place] 2023-05-22 00:00 folic acid [facility] [place] 2023-05-23 00:00 folic acid [facility] [place] 2023-05-27 00:00 folic acid [facility] [place] 2023-06-13 00:00 folic acid [facility] [place] 2023-06-17 00:00 folic acid [facility] [place] 2023-06-21 00:00 folic acid [facility] [place] 2023-06-24 00:00 folic acid [facility] [place] 2023-06-27 00:00 folic acid [facility] [place] 2023-07-10 00:00 folic acid [facility] [place] 2023-07-11 00:00 folic acid [facility] [place] 2023-05-23 00:00 docusate sodium [facility] [place] 2023-05-23 00:00 metoclopramide hcl Walk[facility]In [facility] [place] 2023-05-23 00:00 ondansetron hcl [facility] [place] 2023-05-23 00:00 lamotrigine [facility] [place] 2023-06-21 00:00 acetaminophen [facility] [place] 2023-06-24 00:00 acetaminophen [facility] [place] 2023-06-27 00:00 acetaminophen [facility] [place] 2023-07-10 00:00 acetaminophen [facility] [place] 2023-07-11 00:00 acetaminophen [facility] [place] 2023-04-23 00:00 trazodone [facility] [place] 2023-05-08 00:00 trazodone [facility] [place] 2023-05-13 00:00 trazodone [facility] [place] 2023-05-17 00:00 trazodone [facility] [place] 2023-05-19 00:00 trazodone [facility] [place] 2023-05-22 00:00 trazodone [facility] [place] 2023-05-23 00:00 trazodone [facility] [place] 2023-05-27 00:00 trazodone [facility] [place] 2023-06-13 00:00 trazodone [facility] [place] 2023-06-17 00:00 trazodone [facility] [place] 2023-06-21 00:00 trazodone [facility] [place] 2023-06-24 00:00 trazodone [facility] [place] 2023-06-27 00:00 trazodone [facility] [place] 2023-07-10 00:00 trazodone [facility] [place] 2023-07-11 00:00 trazodone [facility] [place] 2023-06-21 00:00 acetaminophen [facility] [place] 2023-06-24 00:00 acetaminophen [facility] [place] 2023-06-27 00:00 acetaminophen [facility] [place] 2023-07-10 00:00 acetaminophen [facility] [place] 2023-07-11 00:00 acetaminophen [facility] [place] 2023-05-23 00:00 ondansetron hcl [facility] [place] 2023-04-23 00:00 folic acid [facility] [place] 2023-05-08 00:00 folic acid [facility] [place] 2023-05-13 00:00 folic acid [facility] [place] 2023-05-17 00:00 folic acid [facility] [place] 2023-05-19 00:00 folic acid [facility] [place] 2023-05-22 00:00 folic acid [facility] [place] 2023-05-23 00:00 folic acid [facility] [place] 2023-05-27 00:00 folic acid [facility] [place] 2023-06-13 00:00 folic acid [facility] [place] 2023-06-17 00:00 folic acid [facility] [place] 2023-06-21 00:00 folic acid [facility] [place] 2023-06-24 00:00 folic acid [facility] [place] 2023-06-27 00:00 folic acid [facility] [place] 2023-07-10 00:00 folic acid [facility] [place] 2023-07-11 00:00 folic acid [facility] [place] 2023-04-23 00:00 haloperidol [facility] [place] 2023-05-08 00:00 haloperidol [facility] [place] 2023-05-13 00:00 haloperidol [facility] [place] 2023-05-17 00:00 haloperidol [facility] [place] 2023-05-19 00:00 haloperidol [facility] [place] 2023-05-22 00:00 haloperidol [facility] [place] 2023-05-23 00:00 haloperidol [facility] [place] 2023-05-27 00:00 haloperidol [facility] [place] 2023-06-13 00:00 haloperidol [facility] [place] 2023-06-17 00:00 haloperidol [facility] [place] 2023-06-21 00:00 haloperidol [facility] [place] 2023-06-24 00:00 haloperidol [facility] [place] 2023-06-27 00:00 haloperidol [facility] [place] 2023-07-10 00:00 haloperidol [facility] [place] 2023-07-11 00:00 haloperidol [facility] [place] 2023-05-23 00:00 metoclopramide hcl [facility] [place] 2023-04-23 00:00 mirtazapine [facility] [place] 2023-05-08 00:00 mirtazapine [facility] [place] 2023-05-13 00:00 mirtazapine [facility] [place] 2023-05-17 00:00 mirtazapine [facility] [place] 2023-05-19 00:00 mirtazapine [facility] [place] 2023-05-22 00:00 mirtazapine [facility] [place] 2023-05-23 00:00 mirtazapine [facility] [place] 2023-05-27 00:00 mirtazapine [facility] [place] 2023-06-13 00:00 mirtazapine [facility] [place] 2023-06-17 00:00 mirtazapine [facility] [place] 2023-06-21 00:00 mirtazapine [facility] [place] 2023-06-24 00:00 mirtazapine [facility] [place] 2023-06-27 00:00 mirtazapine [facility] [place] 2023-07-10 00:00 mirtazapine [facility] [place] 2023-07-11 00:00 mirtazapine [facility] [place] 2023-05-23 00:00 lamotrigine [facility] [place] 2023-04-23 00:00 mirtazapine [facility] [place] 2023-05-08 00:00 mirtazapine [facility] [place] 2023-05-13 00:00 mirtazapine [facility] [place] 2023-05-17 00:00 mirtazapine [facility] [place] 2023-05-19 00:00 mirtazapine [facility] [place] 2023-05-22 00:00 mirtazapine [facility] [place] 2023-05-23 00:00 mirtazapine [facility] [place] 2023-05-27 00:00 mirtazapine [facility] [place] 2023-06-13 00:00 mirtazapine [facility] [place] 2023-06-17 00:00 mirtazapine [facility] [place] 2023-06-21 00:00 mirtazapine [facility] [place] 2023-06-24 00:00 mirtazapine [facility] [place] 2023-06-27 00:00 mirtazapine [facility] [place] 2023-07-10 00:00 mirtazapine [facility] [place] 2023-07-11 00:00 mirtazapine [facility] [place] 2023-05-23 00:00 docusate sodium [facility] [place] 2023-05-23 00:00 ondansetron hcl [facility] [place] 2023-06-21 00:00 acetaminophen [facility] [place] 2023-06-24 00:00 acetaminophen [facility] [place] 2023-06-27 00:00 acetaminophen [facility] [place] 2023-07-10 00:00 acetaminophen [facility] [place] 2023-07-11 00:00 acetaminophen [facility] [place] 2023-05-23 00:00 metoclopramide hcl Walk-In [facility] [place] 2023-04-23 00:00 trazodone [facility] [place] 2023-05-08 00:00 trazodone [facility] [place] 2023-05-13 00:00 trazodone [facility] [place] 2023-05-17 00:00 trazodone [facility] [place] 2023-05-19 00:00 trazodone [facility] [place] 2023-05-22 00:00 trazodone [facility] [place] 2023-05-23 00:00 trazodone [facility] [place] 2023-05-27 00:00 trazodone [facility] [place] 2023-06-13 00:00 trazodone [facility] [place] 2023-06-17 00:00 trazodone [facility] [place] 2023-06-21 00:00 trazodone [facility] [place] 2023-06-24 00:00 trazodone [facility] [place] 2023-06-27 00:00 trazodone [facility] [place] 2023-07-10 00:00 trazodone [facility] [place] 2023-07-11 00:00 trazodone [facility] [place] 2023-05-23 00:00 docusate sodium [facility] [place] 2023-05-23 00:00 ondansetron hcl [facility] [place] 2023-04-23 00:00 mirtazapine [facility] [place] 2023-05-08 00:00 mirtazapine [facility] [place] 2023-05-13 00:00 mirtazapine [facility] [place] 2023-05-17 00:00 mirtazapine [facility] [place] 2023-05-19 00:00 mirtazapine [facility] [place] 2023-05-22 00:00 mirtazapine [facility] [place] 2023-05-23 00:00 mirtazapine [facility] [place] 2023-05-27 00:00 mirtazapine [facility] [place] 2023-06-13 00:00 mirtazapine [facility] [place] 2023-06-17 00:00 mirtazapine [facility] [place] 2023-06-21 00:00 mirtazapine [facility] [place] 2023-06-24 00:00 mirtazapine [facility] [place] 2023-06-27 00:00 mirtazapine [facility] [place] 2023-07-10 00:00 mirtazapine [facility] [place] 2023-07-11 00:00 mirtazapine [facility] [place] 2023-04-23 00:00 trazodone [facility] [place] 2023-05-08 00:00 trazodone [facility] [place] 2023-05-13 00:00 trazodone [facility] [place] 2023-05-17 00:00 trazodone [facility] [place] 2023-05-19 00:00 trazodone [facility] [place] 2023-05-22 00:00 trazodone [facility] [place] 2023-05-23 00:00 trazodone [facility] [place] 2023-05-27 00:00 trazodone [facility] [place] 2023-06-13 00:00 trazodone [facility] [place] 2023-06-17 00:00 trazodone [facility] [place] 2023-06-21 00:00 trazodone [facility] [place] 2023-06-24 00:00 trazodone [facility] [place] 2023-06-27 00:00 trazodone [facility] [place] 2023-07-10 00:00 trazodone [facility] [place] 2023-07-11 00:00 trazodone [facility] [place] 2023-04-23 00:00 haloperidol [facility] [place] 2023-05-08 00:00 haloperidol [facility] [place] 2023-05-13 00:00 haloperidol [facility] [place] 2023-05-17 00:00 haloperidol [facility] [place] 2023-05-19 00:00 haloperidol [facility] [place] 2023-05-22 00:00 haloperidol [facility] [place] 2023-05-23 00:00 haloperidol [facility] [place] 2023-05-27 00:00 haloperidol [facility] [place] 2023-06-13 00:00 haloperidol [facility] [place] 2023-06-17 00:00 haloperidol [facility] [place] 2023-06-21 00:00 haloperidol [facility] [place] 2023-06-24 00:00 haloperidol [facility] [place] 2023-06-27 00:00 haloperidol [facility] [place] 2023-07-10 00:00 haloperidol [facility] [place] 2023-07-11 00:00 haloperidol [facility] [place] 2023-05-23 00:00 lamotrigine [facility] [place] 2023-06-21 00:00 acetaminophen [facility] [place] 2023-06-24 00:00 acetaminophen [facility] [place] 2023-06-27 00:00 acetaminophen [facility] [place] 2023-07-10 00:00 acetaminophen [facility] [place] 2023-07-11 00:00 acetaminophen [facility] [place] 2023-05-23 00:00 docusate sodium [facility] [place] 2023-05-23 00:00 lamotrigine [facility] [place] 2023-04-23 00:00 folic acid [facility] [place] 2023-05-08 00:00 folic acid [facility] [place] 2023-05-13 00:00 folic acid [facility] [place] 2023-05-17 00:00 folic acid [facility] [place] 2023-05-19 00:00 folic acid [facility] [place] 2023-05-22 00:00 folic acid [facility] [place] 2023-05-23 00:00 folic acid [facility] [place] 2023-05-27 00:00 folic acid [facility] [place] 2023-06-13 00:00 folic acid [facility] [place] 2023-06-17 00:00 folic acid [facility] [place] 2023-06-21 00:00 folic acid [facility] [place] 2023-06-24 00:00 folic acid [facility] [place] 2023-06-27 00:00 folic acid [facility] [place] 2023-07-10 00:00 folic acid [facility] [place] 2023-07-11 00:00 folic acid [facility] [place] 2023-04-23 00:00 trazodone [facility] [place] 2023-05-08 00:00 trazodone [facility] [place] 2023-05-13 00:00 trazodone [facility] [place] 2023-05-17 00:00 trazodone [facility] [place] 2023-05-19 00:00 trazodone [facility] [place] 2023-05-22 00:00 trazodone [facility] [place] 2023-05-23 00:00 trazodone [facility] [place] 2023-05-27 00:00 trazodone [facility] [place] 2023-06-13 00:00 trazodone [facility] [place] 2023-06-17 00:00 trazodone [facility] [place] 2023-06-21 00:00 trazodone [facility] [place] 2023-06-24 00:00 trazodone [facility] [place] 2023-06-27 00:00 trazodone [facility] [place] 2023-07-10 00:00 trazodone [facility] [place] 2023-07-11 00:00 trazodone [facility] [place] 2023-04-23 00:00 folic acid [facility] [place] 2023-05-08 00:00 folic acid [facility] [place] 2023-05-13 00:00 folic acid [facility] [place] 2023-05-17 00:00 folic acid [facility] [place] 2023-05-19 00:00 folic acid [facility] [place] 2023-05-22 00:00 folic acid [facility] [place] 2023-05-23 00:00 folic acid [facility] [place] 2023-05-27 00:00 folic acid [facility] [place] 2023-06-13 00:00 folic acid [facility] [place] 2023-06-17 00:00 folic acid [facility] [place] 2023-06-21 00:00 folic acid [facility] [place] 2023-06-24 00:00 folic acid [facility] [place] 2023-06-27 00:00 folic acid [facility] [place] 2023-07-10 00:00 folic acid [facility] [place] 2023-07-11 00:00 folic acid [facility] [place] 2023-04-23 00:00 haloperidol [facility] [place] 2023-05-08 00:00 haloperidol [facility] [place] 2023-05-13 00:00 haloperidol [facility] [place] 2023-05-17 00:00 haloperidol [facility] [place] 2023-05-19 00:00 haloperidol [facility] [place] 2023-05-22 00:00 haloperidol [facility] [place] 2023-05-23 00:00 haloperidol [facility] [place] 2023-05-27 00:00 haloperidol [facility] [place] 2023-06-13 00:00 haloperidol [facility] [place] 2023-06-17 00:00 haloperidol [facility] [place] 2023-06-21 00:00 haloperidol [facility] [place] 2023-06-24 00:00 haloperidol [facility] [place] 2023-06-27 00:00 haloperidol [facility] [place] 2023-07-10 00:00 haloperidol [facility] [place] 2023-07-11 00:00 haloperidol [facility] [place] 2023-06-21 00:00 fexofenadine [facility] [place] 2023-06-24 00:00 fexofenadine [facility] [place] 2023-06-27 00:00 fexofenadine [facility] [place] 2023-07-10 00:00 fexofenadine [facility] [place] 2023-07-11 00:00 fexofenadine [facility] [place] Problems date description facility 2023-05-13 00:00 Primary hypercoagulable state [facility] [place] 2023-05-13 00:00 Factor V Leiden mutation [facility] [place] 2023-05-13 00:00 Drug therapy [facility] [place] 2023-05-13 00:00 High risk [facility] [place] 2023-05-13 00:00 Activated protein C resistance [facility] [place] 2023-05-13 00:00 Supervision of other high risk pregnancies, third trimester [facility] [place] 2023-05-13 00:00 Other high-risk [facility] [place] 2023-05-13 00:00 Encounter for therap eutic drug monitoring [facility] [place] 2023-05-13 00:00 Other 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 terminal and repeater (cur rent) drug therapy [facility] [place] 2023-05-23 00:00 Edema of foot [facility] [place] 2023-05-23 00:00 Constipation [facility] [place] 2023-05-23 00:00 Edema [facility] [place] 2023-05-23 00:00 Constipation, unspecified [facility] [place] 2023-05-23 00:00 Localized edema [facility] [place] 2023-06-06 00:00 Gestation period, 33 weeks [facility] [place] 2023-06-06 00:00 33 weeks gestation of [facility] [place] 2023-07-04 00:00 Excessive weight gai n during [facility] [place] 2023-07-04 00:00 growth restriction [facility] [place] 2023-07-04 00:00 growth retarda tion, unspecified [weight] [facility] [place] 2023-07-04 00:00 Excessive weight gai n in , third trimester [facility] [place] 2023-07-04 00:00 light for ge stational age, unspecified weight [facility] [place] 2023-07-10 00:00 Gestation period, 38 weeks [facility] [place] 2023-07-10 00:00 Encounter for unspec ified screening of mother [facility] [place] 2023-07-10 00:00 38 weeks gestation of [facility] [place] Procedures date description facility 2023-05-13 00:00 Visit Code Hold [facility] [place] 2023-05-23 00:00 Visit Code Hold [facility] [place] 2023-06-06 00:00 Visit Code Hold [facility] [place] 2023-06-21 00:00 Visit Code Hold [facility] [place] 2023-06-26 00:00 Visit Code Hold [facility] [place] 2023-07-04 00:00 Visit Code Hold [facility] [place] 2023-07-10 00:00 Visit Code Hold [facility] [place] 2023-05-13 00:00 Lamictal [facility] [place] 2023-05-23 00:00 Uric Acid [facility] [place] 2023-06-21 00:00 Uric Acid [facility] [place] 2023-06-06 00:00 First Ix admin via I D IM or jet injects with counseling by physician for adult [facility] [place] 2023-06-06 00:00 Boostrix Intramuscul ar Suspension 5-2.5-18.5 [facility] [place] 2023-05-23 00:00 URINE PROTEIN TO CREATININE RAT IO [facility] [place] 2023-06-21 00:00 URINE PROTEIN TO CREATININE RAT IO [facility] [place] 2023-05-23 00:[facility] [place] 2023-06-21 00:00 Complete Metabolic Panel [facility] [place] Results/Labs test date facility value unit notes Social History date description facility 2023-05-13 00:00 Never smoker [facility] [place] Vital Signs date measurement value units 2023-05-13 00:00 BMI 26.29 kg/m2 2023-05-13 00:00 BP_diastolic 60 mmHg 2023-05-13 00:00 BP_systolic 122 mmHg 2023-05-13 00:00 heart_rate 72 /min 2023-05-13 00:00 height_metric 163.83 cm 2023-05-13 00:00 height_standard 64.5 in 2023-05-13 00:00 weight_metric 70.31 kg 2023-05-13 00:00 weight_standard 155 lb 2023-05-23 00:00 BMI 26.63 kg/m2 2023-05-23 00:00 BP_diastolic 60 mmHg 2023-05-23 00:00 BP_systolic 118 mmHg 2023-05-23 00:00 heart_rate 73 /min 2023-05-23 00:00 height_metric 163.83 cm 2023-05-23 00:00 height_standard 64.5 in 2023-05-23 00:00 weight_metric 71.21 kg 2023-05-23 00:00 weight_standard 157 lb 2023-06-21 00:00 BMI 28.66 kg/m2 2023-06-21 00:00 BP_diastolic 58 mmHg 2023-06-21 00:00 BP_systolic 118 mmHg 2023-06-21 00:00 height_metric 163.83 cm 2023-06-21 00:00 height_standard 64.5 in 2023-06-21 00:00 weight_metric 76.66 kg 2023-06-21 00:00 weight_standard 169 lb 2023-06-26 00:00 BMI 35.79 kg/m2 2023-06-26 00:00 BP_diastolic 60 mmHg 2023-06-26 00:00 BP_systolic 106 mmHg 2023-06-26 00:00 height_metric 163.83 cm 2023-06-26 00:00 height_standard 64.5 in 2023-06-26 00:00 weight_metric 95.71 kg 2023-06-26 00:00 weight_standard 211 lb 2023-07-04 00:00 BMI 28.36 kg/m2 2023-07-04 00:00 BP_diastolic 72 mmHg 2023-07-04 00:00 BP_systolic 118 mmHg 2023-07-04 00:00 height_metric 163.83 cm 2023-07-04 00:00 height_standard 64.5 in 2023-07-04 00:00 weight_metric 75.84 kg 2023-07-04 00:00 weight_standard 167.2 lb 2023-07-10 00:00 BMI 28.16 kg/m2 2023-07-10 00:00 BP_diastolic 64 mmHg 2023-07-10 00:00 BP_systolic 124 mmHg 2023-07-10 00:00 height_metric 163.83 cm 2023-07-10 00:00 height_standard 64.5 in 2023-07-10 00:00 weight_metric 75.3 kg 2023-07-10 00:00 weight_standard 166 lb
--- NOTE | 2023-07-17 13:34 | DELIVERY NOTE ---
Delivery Note - Labor Labor: positive: Spontaneous - Delivery Method Delivery Method: positive: Spontaneous vaginal delivery - Presentation Presentation: positive: Vertex - Nuchal Cord Nuchal Cord: positive: None - Amniotic Fluid Description Amniotic Fluid Description: positive: Thick meconium - Episiotomy Type Episiotomy Type: positive: None - Laceration Laceration: positive: None - Cord Cord: positive: 3 vessels - Placenta Placenta: positive: Intact, Spontaneous - Post Delivery Events Post Delivery Events: positive: No post delivery events
--- NOTE | 2023-07-17 13:36 | PROCEDURE REPORT ---
Hospitalist Procedure Note - Procedure Note Procedure Note: Normal spontaneous vaginal delivery Stage I: Patient is a presented in labor FHTs remained reassuring throughout the first stage. SROM with thick meconium. Stage II: Female was atraumatcally delivered from LISSA position. There was no nuchal cord. The anterior shoulder was delivered without difficulty followed by the posterior shoulder and body. Infant was vigorous at delivery. was bulb suctioned and cord was doubly clamped and cut. was placed on mom. Weight and APGARS pending Stage III: Gentle cord traction. Placenta delivered spontaneously. Placenta was noted to not be intact. 3 vessel cord. Course: Uterine tone was firm with massage after delivery of the placenta. IM Oxytocin was administered. No perineal or vaginal lacerations. EBL: 250 mL
[2023-07-17 14:41] LABS: BASOPHILS % (AUTO) 0.2 %; HCT - HEMATOCRIT 41.5 % (37.0-47.0); HGB - HEMOGLOBIN 13.6 g/dL (12.0-16.0); LYMPHOCYTES % (AUTO) 5.7 %; MEAN CORPUSCULAR HEMOGLOBIN 31.1 pg (27.0-31.0); MEAN CORPUSCULAR HGB CONC 32.8 g/dL (32.0-36.0); MONOCYTES # (AUTO) 0.7 10^3/uL (0.0-1.0); MONOCYTES % (AUTO) 4.3 %; NEUTROPHILS # (AUTO) 14.9 10^3/uL (1.5-6.6); NEUTROPHILS % (AUTO) 89.2 %; PLT - PLATELET COUNT 206 10^3/uL (130-450); RED BLOOD COUNT 4.37 10^6/uL (4.20-5.40); RED CELL DISTRIBUTION WIDTH 13.7 % (12.0-15.0); WHITE BLOOD COUNT 16.7 x10^3/uL (4.8-10.8)
[2023-07-17] MEDS ORDERED: OXYTOCIN/SODIUM CHLORIDE 500 ML IV PRN (15:02)
--- NOTE | 2023-07-17 15:04 | PROVIDER PROGRESS NOTE ---
Subjective - Prog Note Date Prog Note Date: 07/17/23 Prog Note Time: 15:03 - Subjective Subjective: Called to evaluate for heavy vaginal bleeding. Bimanual examination with evacuation of approximately 400 mL of clot. IV ordered. IV Pitocin ordered. IM pit ordered. Objective - Vital Signs/Intake & Output Vital Signs: Vital Signs x48h Temp Pulse Resp BP 07/17/23 11:35 98.1 F 90 18 117/73 - Lab Results Fish Bones: 07/17/23 14:28 Other Labs: Lab Results x24hrs 07/17/23 Range/Units 14:28 WBC 16.7 H (4.8-10.8) x10^3/uL RBC 4.37 (4.20-5.40) 10^6/uL Hgb 13.6 (12.0-16.0) g/dL Hct 41.5 (37.0-47.0) % MCV 95.0 (81.0-99.0) fL MCH 31.1 H (27.0-31.0) pg MCHC 32.8 (32.0-36.0) g/dL RDW 13.7 (12.0-15.0) % Plt Count 206 (130-450) 10^3/uL MPV 11.0 H (7.9-10.8) fL Neut # (Auto) 14.9 H (1.5-6.6) 10^3/uL Lymph # (Auto) 1.0 L (1.5-3.5) 10^3/uL Orange # (Auto) 0.7 (0.0-1.0) 10^3/uL Eos # (Auto) 0.0 (0.0-0.7) 10^3/uL Baso # (Auto) 0.0 (0.0-0.1) 10^3/uL Absolute Nucleated RBC 0.00 x10^3/uL Nucleated RBC % 0.0 /100WBC
[2023-07-17] MEDS ORDERED: OXYTOCIN/SODIUM CHLORIDE 500 ML IV ONE (15:08)
[2023-07-17] MEDS: IBUPROFEN 600 MG TABLET PO SCH ×2 (15:19→21:41)
[2023-07-17] MEDS: ACETAMINOPHEN 325 MG TABLET PO PRN ×3 (15:22→23:56)
[2023-07-18] MEDS: ACETAMINOPHEN 325 MG TABLET PO PRN ×4 (03:43→15:30)
[2023-07-18] MEDS: IBUPROFEN 600 MG TABLET PO SCH ×3 (03:44→15:17)
--- NOTE | 2023-07-18 12:40 | DISCHARGE SUMMARY ---
Discharge Summary Admit Date: 07/17/23 Discharge Date: 07/18/23 Discharging Provider: Nader Chen MD Code Status: Attempt Resuscitation Condition at Discharge: Good Discharge Disposition: 01 Home, Self Care - DIAGNOSES Admission Diagnoses: 39 weeks gestation Term labor History of shoulder dystocia History of hemorrhage Bipolar disorder Discharge Diagnoses with Status of Each Condition: 39 weeks gestation: Delivered Term labor: Delivered History of shoulder dystocia: Delivered History of hemorrhage: Delivered Bipolar disorder: Stable Delivery of live simpson Spontaneous vaginal delivery - HPI History of Present Illness: Subjective Patient reports she is doing well. Lochia appropriate. Denies heavy bleeding. Ambulating. Pelvic and abdominal pain well-controlled. Tolerating oral intake. Diet: Regular. Voiding without difficulty. Passing flatus. Denies BM. Patient is bonding with baby in room Breast feeding going well. Denies feeling lightheaded, dizzy or excessively fatigued. Objective General: Alert, oriented, no apparent distress. Cardiovascular: Regular rate. Regular rhythm. Lungs: No increased work of breathing. Abdomen: Uterus firm. Below umbilicus. No guarding or rebound. Extremities: No pain on palpation. No cords palpated. Distal pulses intact. - HOSPITAL COURSE Hospital Course: Patient was admitted to labor and delivery and active labor at 39 weeks gestation. She had an uncomplicated spontaneous vaginal delivery. She received IM oxytocin as she did not have an epidural. After the immediate delivery time, she passed a large amount of blood and received IM Methergine. After this, her delivery was uncomplicated. Her course was also uncomplicated and she desired to be discharged on day 1 with her . - ALLERGIES Allergies/Adverse Reactions: Allergies Allergy/AdvReac Type Severity Reaction Status Date / Time amoxicillin Allergy Unknown Verified 11/24/22 16:30 - MEDICATIONS Home Medications: Ambulatory Orders Medication Instructions Recorded Confirmed QUEtiapine [SEROquel] 400 mg PO DAILY PM 02/20/19 11/24/22 Acetaminophen [Tylenol] 650 mg PO Q6H PRN #30 tab 02/28/21 11/24/22 Mirtazapine 45 mg PO DAILY 01/30/22 11/24/22 - LABS Result Diagrams: 07/17/23 14:28 - FOLLOW UP Follow Up: In 1 week with [facility] - TIME SPENT Time Spent in Discharge (Minutes): 20
--- NOTE | 2023-07-18 12:45 | Discharge Plan ---
Discharge Plan Problem Reviewed?: Yes Disposition: Home, Self Care Condition: Good Diet: Regular Shower Restrictions: No Driving Restrictions: No Instruction Topics: Vaginal After, Depression No Smoking: If you smoke, Please STOP! Call for help. Follow-up with: Nader Chen MD [Provider Admit Priv/Credential] -
[2023-07-18 13:41] VITALS: BP 117/79; O2SAT 100
--- NOTE | 2023-07-18 17:10 | Labor Flowsheet ---
Labor Flowsheet Datetime Report Generated by CPN: 07/18/2023 17:09 Datetime: 07/18/2023 12:27 VITAL SIGNS NBP Sys/Marilou/Mean (mmHg): 117 : 79 : 88 Pulse: 81 LaborFlag: Labor Datetime: 07/17/2023 17:31 Membranes Ruptured Date/Time: 07/17/2023 12:35 Amniotic Fluid Odor: Normal MEDICATIONS Cervical Ripening Agents Other: none Datetime: 07/17/2023 16:01 Medication Comments: TXA given Datetime: 07/17/2023 15:20 COMMUNICATION Provider Notified (Name): E. Baltes; heavy bleeding noted with clots Datetime: 07/17/2023 13:30 Stage 2 Comments: 10 units im pit given Datetime: 07/17/2023 13:24 UTERINE ACTIVITY Monitor Mode: External Frequency (min): 1-2 Quality: Strong Duration (sec): 60-90 Pattern: Normal: <= 5 Contractions in 10 Minutes Resting Tone (Palpate): Relaxed ASSESSMENT A Monitor Mode: External US FHR Baseline Rate : 150 FHR Baseline Changes: No Baseline Change Variability: Moderate 6-25 bpm Accelerations: 15X15 Decelerations: None Category: Category I Comments: int. tracing during pushing efforts Datetime: 07/17/2023 13:21 Pushing Progress: Presenting Part Visible Datetime: 07/17/2023 13:13 VAGINAL EXAM Dilatation (cm): 9.5 Cervix, Position: Anterior Datetime: 07/17/2023 13:11 STAGE 2 Pushing: Involuntary Pushing Pushing Position: Pushing with Contractions Datetime: 07/17/2023 13:00 Monitor Interventions for FHR: Ultrasound Adjusted Datetime: 07/17/2023 12:48 Effacement (%): 100 Station: -1 Datetime: 07/17/2023 12:37 PATIENT CARE Hygiene: Complete Bath Patient Care Comments: in jetted tub Datetime: 07/17/2023 12:35 Membrane Status: Ruptured Membranes Rupture Method: Spontaneous Amniotic Fluid Color: Heavy Meconium Amniotic Fluid Amount: Moderate Datetime: 07/17/2023 12:00 Stage of : Labor Datetime: 07/17/2023 11:53 Exam by: ALHAJI Flower
== END 2023-07-18 16:50 | disposition home or self-care (01) | DRG 806 ==
LOC: WFO 11:23 → FBP 11:24 → WFO 12:25 → FBP 13:05
PROVIDERS: ADMIT Obstetrics & Gynecology Obstetrics; ATTEND Obstetrics & Gynecology
PROC: 10E0XZZ Delivery of Products of Conception, External Approach (ICD-10-PCS; principal; 2023-07-17)
DX: O77.0 Labor and delivery complicated by meconium in amniotic fluid (principal); D68.51 Activated protein C resistance; Z37.0 Single live birth; O99.12 Other diseases of the blood and blood-forming organs and certain disorders involving the immune mechanism complicating childbirth; O72.1 Other immediate postpartum hemorrhage; O99.344 Other mental disorders complicating childbirth; Z3A.39 39 weeks gestation of pregnancy; F31.9 Bipolar disorder, unspecified; Z87.59 Personal history of other complications of pregnancy, childbirth and the puerperium
CPT/HCPCS: 59025; 85025; 86850; 86900; 86901; 99215; A9270; J2210; Q0162

== ENCOUNTER 2023-07-26 11:52 | Outpatient (CLI) | payer MEDICAID ==
[2023-07-26 12:05] LABS: HCT - HEMATOCRIT 40.5 % (37.0-47.0); HGB - HEMOGLOBIN 12.8 g/dL (12.0-16.0); MEAN CORPUSCULAR HEMOGLOBIN 31.2 pg (27.0-31.0); MEAN CORPUSCULAR HGB CONC 31.6 g/dL (32.0-36.0); MEAN CORPUSCULAR VOLUME 98.8 fL (81.0-99.0); RED BLOOD COUNT 4.1 10^6/uL (4.20-5.40); RED CELL DISTRIBUTION WIDTH 13.6 % (12.0-15.0); WHITE BLOOD COUNT 7.7 x10^3/uL (4.8-10.8)
[2023-07-26 12:39] LABS: THYROID STIMULATING HORMONE 1.01 uIU/mL (0.34-5.60)
[2023-07-26 12:45] LABS: FERRITIN 10.1 ng/mL (11.0-306.8)
== END 2023-07-26 11:53 | disposition home or self-care (01) ==
LOC: LAB 11:52
PROVIDERS: ATTEND Nurse Practitioner
DX: N93.9 Abnormal uterine and vaginal bleeding, unspecified (principal)
CPT/HCPCS: 36415; 82728; 84443; 84702; 85027

== ENCOUNTER 2023-08-30 13:56 | Outpatient (CLI) | payer MEDICAID ==
[2023-08-30 14:33] LABS: THYROID STIMULATING HORMONE 1.1 uIU/mL (0.34-5.60)
== END 2023-08-30 13:57 | disposition home or self-care (01) ==
LOC: LAB 13:56
PROVIDERS: ATTEND Nurse Practitioner
DX: F41.9 Anxiety disorder, unspecified (principal); F32.A Depression, unspecified
CPT/HCPCS: 36415; 84436; 84443; 84480